=== PATIENT | male | born 1970 | race Caucasian/White ===

== ENCOUNTER 2019-02-03 15:43 | Observation (INO) | payer OTHER, SELFPAY ==
[2018-10-31 11:29] VITALS: BMI 27.2
[2019-02-03 15:44] VITALS: BP 139/122; PULSE 110; RESP 16; TEMP 36.6; O2SAT 96; BMI 25.3
--- NOTE | 2019-02-03 16:19 | ED.DCSUM_ITS ---
- ER Visit Summary Date of Service: 02/03/19 Chief Complaint: Nausea and vomiting after excessive alcohol consumption History of Present Illness: The patient is a 48 M history of alcoholism and gastritis. Patient states that he drank a liter of vodka and last 24 hours he has had nausea vomiting last couple days. Denies any hematemesis. No melena. No abdominal pain. He states he is never had pancreatitis. He also states that he went through alcohol detox earlier this year in [facility]. Physical Examination: Middle-aged male no acute distress. Vital signs are stable he is afebrile he does not look septic or toxic. HEENT exam unremarkable. Neck nontender no lymphadenopathy. Lungs clear to auscultation bilaterally. Heart regular rhythm no murmur rate about 100. Abdomen is soft and nontender. Normal bowel sounds no peritoneal signs. Nondistended. No signs of obstruction. Both right upper right lower quadrant unremarkable. He is moving all 4 extremities. They are neurovascular intact. Normal motor strength and sensation. No deformity. Nontender. Back nontender. Neurologically is awake and alert with no focal motor deficits. He is slightly subdued to the alcohol. Test Results: See normal white count of 5 hemoglobin 15. Chemistries unremarkable gap is 17 consistent with alcoholic ketosis. Glucose 73. BUN 13 creatinine 1. Liver enzymes slightly elevated consistent with his alcohol abuse. Lipase normal. Alcohol elevated at 381. Emergency Department Course and Treatment: Treated with IV fluids and IV Zofran. I have encouraged the patient to strongly consider inpatient detox. His is present in the room and they are going to discuss that. Treatment Plan: Repeat exam the patient is resting comfortably. His strongly wants him detox. She will find him detox facility but would like him to stay here overnight. Patient is agreeable to that plan. I will speak to the hospitalist about admission. Disposition: Admission Impression: Acute nausea and vomiting secondary to alcohol abuse History of alcoholism Alcoholism requiring detox Acute alcohol intoxication This note was generated with [employer] dictation software. It may contain incorrect words, spelling, and punctuation that were not noted in review of the chart prior to signing ED Disposition - Plan for ED Patient: Referrals: Care Physician,No Primary [Primary Care Provider] -
[2019-02-03] MEDS: Ondansetron 4 MG/2 ML Vial IV ×2 (17:16→23:25)
[2019-02-03] MEDS: 0.9% Normal Saline 1,000 ML 1000 ML IV (17:16)
[2019-02-03 17:19] LABS: Absolute Lymphocyte Count 1.58 X10^3/uL (0.83-4.51); Absolute Neutrophil Count 2.9 X10^3/uL (2.0-7.7); Basophil# 0.06 X10^3/uL; Basophil% 1.2 % (0-1); Eosinophil# 0.12 X10^3/uL; Eosinophils% 2.4 % (0-5); Hemoglobin 15.8 g/dL (13.0-16.5); Lymphocyte # 1.58 X10^3/ul (4.0); Lymphocyte % 31.9 % (19-41); Mean Corp Hgb Conc 34.3 g/dL (32-36); Mean Corpuscular Hgb 32.2 pg (27.0-32.0); Mean Corpuscular Volume 93.7 fL (80-94); Mean Platelet Vol. 11.5 fl (6.2-12.0); Monocyte# 0.25 X10^3/uL; NRBC Flagged by Analyzer 0 % (0-5); Neutrophil # 2.94 X10^3/uL (2.7-7.7); Neutrophil % 59.3 % (47-70); Platelet Count 218 K/mm3 (150-450); RBC Distribution Width SD 41.5 fl (35.1-43.9); Red Blood Count 4.91 M/mm3 (4.6-6.2)
[2019-02-03 17:44] LABS: AST(SGOT) 66 U/L (15-37); Alanine Aminotransfer ALT/SGPT 89 U/L (16-61); Albumin, Serum 4.8 g/dL (3.2-5.0); Alkaline Phosphatase 71 U/L (45-117); Anion Gap 17 (5-15); BUN 13 mg/dL (7-18); BUN/Creat Ratio 12.1 RATIO (10-20); Bilirubin, Direct 0.36 mg/dL (0.00-0.30); Calcium,Total 9.2 mg/dL (8.5-10.1); Chloride 94 mmol/L (98-107); Creatinine, Serum 1.07 mg/dL (0.70-1.30); EST Glomerular Filtration Rate 79 mL/min (>60); Est Glom Filt Rate - Afr Amer 95 mL/min (>60); Estimated Creatinine Clearance 89.07 ml/min; Globulin 3.6 g/dL (2.2-4.2); Glucose 73 mg/dL (74-106); Lipase 173 U/L (73-393); Protein, Total 8.4 g/dL (6.4-8.2); Sodium Level 136 mmol/L (136-145)
[2019-02-03 18:10] VITALS: BP 130/69; PULSE 85; RESP 16; O2SAT 94
--- NOTE | 2019-02-03 18:57 | HP.PCM_ITS ---
History of Present Illness Date of Admission: 02/03/19 Chief Complaint: alcohol withdrawal The patient is a 48 year old M with past medical history of extensive alcohol abuse. He was admitted through the ED on 02/03/2019 for alcohol withdrawal. Patient states he drinks about half a liter of vodka every day and his last drink was yesterday. He has had nausea and vomiting and wants to quit drinking so he decided to come in for detox. He has undergone detox before which was early at the [facility]. Complained of feeling weak and tired but denied any fever chills, nausea or vomiting, chest pain or diarrhea. Review of systems is otherwise negative. Vitals were essentially stable. Chemistry showed anion gap of 17 and total bilirubin of 1.6 as well as direct bilirubin of 0.63 and AST/ALT of 66/89. CBC was unremarkable. He is never gone through DTs and has never had pancreatitis. He has been admitted to be managed for acute alcohol withdrawal. hopes to get him into a rehab facility shortly. [] Past Medical History Medical History: Medical History (Last Updated 10/31/18 @ 11:31 by Ginna Cotto) Gastritis K29.70 Allergies No Known Allergies Allergy (Unverified 02/03/19 15:44) Home Medications: Ambulatory Orders Medication Instructions Recorded Hydroxyzine Pamoate 50 mg PO DAILY 02/03/19 Melatonin 3 mg PO QHS 02/03/19 Ondansetron [Zofran Odt] 4 mg PO PRN PRN 02/03/19 Pantoprazole Sodium [Protonix] 40 mg PO DAILY 02/03/19 Surgical History: no surgical history Psychiatric History: No pertinent psych hx Lives: Spouse/ Significant Other Smoking Status: Never smoker Tobacco Use: Non-smoker Alcohol: Heavy Drugs: None - *Family History Maternal History Items: No pertinent history Paternal History Items: No pertinent history Review of Systems Constitutional: Reports: Malaise, Weakness, Fatigue. Denies: Chills, Fever, Weight Change Eyes: Denies: Blurred vision HEENT: Denies: Head Aches, Sinus Congestion, Sinus Drainage Cardiovascular: Denies: Chest Pain, Palpitations Respiratory: Denies: Cough, Shortness of Breath, Shortness of breath at rest, Shortness of breath upon exertion, Sputum production Gastrointestinal: Denies: Abdominal Pain, Nausea, Vomiting Genitourinary: Denies: Dysuria Musculoskeletal: Denies: Joint Pain, Joint Tenderness Skin: Denies: Rash, Wounds Neurological: Denies: Numbness, Tingling, Focal weakness Psychiatric: Denies: Anxiety, Depression, Homicidal Ideations, Suicidal Ideations Hematologic/ Lymphatic: Denies: Easy Bruising, Easy Bleeding VTE Information - Inpt Only VTE Present on Admission: No VTE Pharm Prophylaxis ordered?: Yes - Physical Exam Vitals/I&O's: Vital Signs Temp Pulse Resp BP Pulse Ox 97.8 F 85 16 130/69 H 94 02/03/19 15:44 02/03/19 18:10 02/03/19 18:10 02/03/19 18:10 02/03/19 18:10 Oxygen Delivery Method Room Air Weight: 176 lb 12.972 oz Body Mass Index (BMI) 25.3 Intake and Output for Last 24 Hours 02/01/19 02/02/19 02/03/19 23:59 23:59 23:59 Intake Total 1000 / 1000 Balance 1000 / 1000 General: Alert, Oriented x3, Cooperative, No apparent distress, Lethargic HEENT: Atraumatic, PERRLA, EOMI, Normocephalic Oral: Dry Mucosa Neck: Supple, No JVD, Negative Carotid Bruits Lungs: Clear to auscultation, Normal air movement, No rhonchi, No wheeze, No rales Cardiovascular: Regular rate, Regular Rhythm, Normal S1, Normal S2, No murmurs Abdomen: Bowel Sounds Present, Soft, Non Tender, Non-Distended, No Hepato- splenomegaly Extremities: No clubbing, No cyanosis, No edema, Capillary Refill Less than 3 Seconds Skin: No rashes, No breakdown Musculoskeletal: No Tenderness to Palpation of Joints or Extremities Lymphatic: No Cervical, Supraclavicular, or Inguinal Adenopathy Neurological: Cranial nerves II-XII grossly intact, Neuro grossly intact, Motor Exam 5/5 strength throughout Psych/Mental Status: Flat Affect, Alert and oriented to time, place, person, mood and affect Laboratory Results 02/03/19 17:10: WBC 5.0, RBC 4.91, Hgb 15.8, Hct 46.0, MCV 93.7, MCH 32.2 H, MCHC 34.3, RDW Std Deviation 41.5, RDW Coeff of Shahbaz 12.0, Plt Count 218, MPV 11.5, Immature Gran % (Auto) 0.200, Neut % (Auto) 59.3, Lymph % (Auto) 31.9, Jennings % (Auto) 5.0, Eos % (Auto) 2.4, Baso % (Auto) 1.2 H, Absolute Neuts (auto) 2.9, Absolute Lymphs (auto) 1.58, Nucleated RBC % 0 02/03/19 17:10: Sodium 136, Potassium 4.0, Chloride 94 L, Carbon Dioxide 25.0, Anion Gap 17 H, BUN 13, Creatinine 1.07, Estim Creat Clear Calc 89.07, Est GFR (MDRD) Af Amer 95, Est GFR (MDRD) Non-Af 79, BUN/Creatinine Ratio 12.1, Glucose 73 L, Calcium 9.2, Total Bilirubin 1.60 H, Direct Bilirubin 0.36 H, AST 66 H, ALT 89 H, Alkaline Phosphatase 71, Total Protein 8.4 H, Albumin 4.8, Globulin 3.6, Lipase 173 02/03/19 17:10: Ethyl Alcohol 381.0 H* Current Medications Sodium Chloride () 1,000 mls @ 999 mls/hr IV .Q1H1M ONE Stop: 02/03/19 19:45 Assessment/Plan All Active Problems (Last Updated 10/31/18 @ 11:31 by Ginna Cotto) Pityrosporum folliculitis (Acute) 48-year-old male admitted for acute alcohol withdrawal. 1. Acute alcohol withdrawal * admit to [facility] * blood alcohol level was 381 * check urine tox * [facility] * monitor CIWA score * consult case management to help with discharge planning * 2. Mild anion gap acidosis: Anion gap is 17 with bicarb of 25. This is likely due to alcoholic ketosis. Should improve with hydration. Will monitor. 3. Elevated liver enzymes: * Total bilirubin is 1.6 with direct bilirubin of 0.36 and AST/ALT of 66 4/89. * This is likely due to chronic alcohol abuse. * No baseline available. * Will monitor. * DVT prophylaxis: low risk. encourage ambulation * Code Visit Inpatient E&M: 40266 Init Hosp L3
[2019-02-03 19:00] VITALS: BP 149/96; PULSE 82; RESP 18; O2SAT 96
[2019-02-03] MEDS: Pantoprazole Sodium 40 MG Tablet PO (19:00)
[2019-02-03] MEDS: 0.9% Normal Saline 1,000 ML 999 ML IV (19:00)
--- NOTE | 2019-02-03 19:20 | ED.RN ---
NOTIFIED OF PT'S REQUEST TO GET SOMETHING TO HELP WITH ANXIETY; PT CURRENTLY HAS MILD TREMORS AND SENSITIVITY TO LIGHT
--- NOTE | 2019-02-03 19:20 | CM.ED ---
SOCIAL WORK INFORMANT: DR. ARIAS REASON FOR REFERRAL: ETOH INTOX- PATIENT TO BE ADMITTED MET WITH PATIENT AND IN ROOM. INTRODUCED ROLE AND REASON FOR REFERRAL. PLAN FOR ADMISSION FOR DETOX. STATES PATIENT WAS IN DETOX BACK IN OCTOBER AND WENT TO [facility]. PATIENT AND REPORT THE EXPERIENCE WAS NOT GOOD AND I WOULD NOT RECOMMEND. DISCUSSED OTHER OPTIONS AND PROVIDED WITH LIST OF OTHER FACILITIES. EDUCATION PROVIDED ON MENTAL HEALTH AND ADDITION. PATIENT'S REPORTS PATIENT HAS MENTIONED IN THE PAST ANXIETY AND DEPRESSION THAT IS NOT TREATED. STATES FAMILY WENT THROUGH A SIGNIFICANT LOSS. MUCH ENCOURAGEMENT AND EMOTIONAL SUPPORT PROVIDED TO PATIENT AND . NO OTHER QUESTIONS AT THIS TIME. PLAN: ADMIT, RESOURCES PROVIDED. Fatuma MENDOZA, RAILROAD PASSENGER AGENT, ABSTRACT CHECKER.
[2019-02-03] MEDS: LORazepam 0.5 MG Tablet PO (19:34)
[2019-02-03 20:00] VITALS: BMI 25.9
[2019-02-03 20:02] VITALS: BP 126/73; PULSE 90; RESP 16; TEMP 36.7; O2SAT 95
[2019-02-03 20:13] VITALS: BMI 25.9
[2019-02-03 20:13] LABS: Magnesium 2.1 mg/dL (1.6-2.6)
[2019-02-03] MEDS: hydrOXYzine PAM 25 MG Capsule 50 MG PO (21:23)
[2019-02-03 23:12] VITALS: BP 134/84; PULSE 98; RESP 18; TEMP 36.6; O2SAT 98
[2019-02-03] MEDS: LORazepam 1 MG Tablet PO (23:17)
[2019-02-03] MEDS: MELATONIN 3 MG TABLET PO (23:17)
[2019-02-03] MEDS: 0.9% Saline Lock 10 ML Syringe IV (23:25)
[2019-02-03 23:35] LABS: Amphetamine Urine VISTA NEGATIVE (<1000 ng/mL); Barbiturate Urine VISTA NEGATIVE (< 200 ng/mL); Benzodiazepine Urine VISTA NEGATIVE (< 200 ng/mL); Cocaine Urine VISTA NEGATIVE (< 300 ng/mL); Ecstacy Urine VISTA NEGATIVE (< 500 ng/mL); Methadone Urine VISTA NEGATIVE (< 300 ng/mL); PCP Urine VISTA NEGATIVE (< 25 ng/mL); THC Urine VISTA NEGATIVE (< 50 ng/mL); Vista UDS pH Range 5
[2019-02-04] VITALS (7 sets, daily range): BP systolic 137–169; BP diastolic 81–98; PULSE 90–111; RESP 14–18; TEMP 36.7–37; O2SAT 97–98
[2019-02-04] MEDS: LORazepam 1 MG Tablet PO ×5 (03:09→22:30)
[2019-02-04 06:51] LABS: Absolute Lymphocyte Count 2.26 X10^3/uL (0.83-4.51); Absolute Neutrophil Count 2.4 X10^3/uL (2.0-7.7); Basophil# 0.05 X10^3/uL; Eosinophil# 0.03 X10^3/uL; Eosinophils% 0.6 % (0-5); Hematocrit 39.8 % (40-54); Hemoglobin 13.3 g/dL (13.0-16.5); Lymphocyte # 2.26 X10^3/ul (4.0); Lymphocyte % 44.2 % (19-41); Mean Corp Hgb Conc 33.4 g/dL (32-36); Mean Corpuscular Volume 95.7 fL (80-94); Mean Platelet Vol. 12.2 fl (6.2-12.0); Monocyte# 0.38 X10^3/uL; Monocyte% 7.4 % (0-10); NRBC Flagged by Analyzer 0 % (0-5); Neutrophil # 2.38 X10^3/uL (2.7-7.7); Neutrophil % 46.6 % (47-70); Platelet Count 170 K/mm3 (150-450); RBC Distribution Width SD 42.4 fl (35.1-43.9); Red Blood Count 4.16 M/mm3 (4.6-6.2); White Blood Count 5.1 K/mm3 (4.4-11.0)
[2019-02-04 07:13] LABS: ALB/GLOB Ratio 1.2 RATIO (0.9-2.4); AST(SGOT) 51 U/L (15-37); Alanine Aminotransfer ALT/SGPT 72 U/L (16-61); Albumin, Serum 3.9 g/dL (3.2-5.0); Alkaline Phosphatase 59 U/L (45-117); Anion Gap 12 (5-15); BUN 12 mg/dL (7-18); Calcium,Total 8.4 mg/dL (8.5-10.1); Chloride 97 mmol/L (98-107); EST Glomerular Filtration Rate 85 mL/min (>60); Est Glom Filt Rate - Afr Amer 103 mL/min (>60); Estimated Creatinine Clearance 95.31 ml/min; Globulin 3.2 g/dL (2.2-4.2); Glucose 58 mg/dL (74-106); Protein, Total 7.1 g/dL (6.4-8.2); Sodium Level 136 mmol/L (136-145)
[2019-02-04] MEDS: Multivitamins,Therapeutic Tablet 1 TABLET PO (07:39)
[2019-02-04] MEDS: Folic Acid 1 MG Tablet PO (07:39)
[2019-02-04] MEDS: Pantoprazole Sodium 40 MG Tablet PO (07:40)
[2019-02-04] MEDS: Thiamine Hydrochloride 100 MG Tablet PO (07:40)
--- NOTE | 2019-02-04 07:44 | PCM.PROGNOTE ---
Subjective: The patient is a 48-year-old male with an extensive history of alcohol dependence who was admitted to [facility] on 02/03/2019 requesting medical stabilization for acute alcohol withdrawal. Vital signs at presentation to the emergency room were temperature 97.8, pulse rate 110, blood pressure 139/2, respiratory rate 16 and he was 96% saturated on room air. CBC was unremarkable. Serum bicarb was 25 and the anion gap was mildly increased at 17. LFTs are abnormal with a total bilirubin of 1.6, AST of 66, ALT of 89 and an alkaline phosphatase of 71. Lipase was within normal limits. Blood alcohol at admission was 381 despite the fact that he said he had not had a drink in 24 hours. He was admitted to the hospital for medical stabilization for acute alcohol withdrawal. Vital signs are stable. He is not tachycardic and blood pressure is within normal limits. He relates to me that he was in detox in October and he stayed 4 days and then went home. He tells me he was sober for approximately 1 month and then started drinking here and there and now he is drinking every day again. He has a grandfather who was an alcoholic. He has no siblings that are alcoholics and his parents are not alcoholic. He denies any illicit drug use. He has never been to and has never been to an inpatient drug/alcohol rehab program. He has never been on Antabuse. He has no plan for what he is going to do at [place]. 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 He tells me that he only drinks at night when he is done with working. Drinking is beginning to cause a problem with his marriage. He denies any suicidal ideation and also denies any history of anxiety/depression. There is no history of mental health disorders in his family. He has decreased appetite today and some nausea. No emesis. He is a little tremulous. No hallucinations. Has never had seizures with alcohol withdrawal. Objective: PHYSICAL EXAM: GENERAL: alert, oriented X 3, Cooperative, NAD, looks sleepy and he is yawning. ORAL: dry mucosa, no mucosal lesions NECK: No JVD, supple, trachea midline LUNGS: CTA, symmetric chest expansion HEART: RRR, Normal S1 and S2, no rub, no gallop ABDOMEN: soft, NT, ND, BS present, no guarding with palpation EXTREMITIES: no edema, no cyanosis, no calf tenderness SKIN: No rashes, no breakdown NEUROLOGIC: no focal neurologic deficits, his hands are tremulous PSYCH: appropriate, flat affect, seems unsure of just what he is going to do about rehab. - Physical Exam Vitals/I&O's: Vital Signs Temp Pulse Resp BP Pulse Ox 98.6 F 93 16 138/82 H 98 02/04/19 03:06 02/04/19 03:06 02/04/19 03:06 02/04/19 03:06 02/04/19 03:06 Oxygen Delivery Method Room Air Weight: 180 lb 5.41 oz Body Mass Index (BMI) 25.9 Intake and Output for Last 24 Hours 02/02/19 02/03/19 02/04/19 23:59 23:59 23:59 Intake Total 1999 / 0 500 / 500 Balance 1999 / 2299 500 / 500 Laboratory Results 02/03/19 17:10: WBC 5.0, RBC 4.91, Hgb 15.8, Hct 46.0, MCV 93.7, MCH 32.2 H, MCHC 34.3, RDW Std Deviation 41.5, RDW Coeff of Shahbaz 12.0, Plt Count 218, MPV 11.5, Immature Gran % (Auto) 0.200, Neut % (Auto) 59.3, Lymph % (Auto) 31.9, Bowman % (Auto) 5.0, Eos % (Auto) 2.4, Baso % (Auto) 1.2 H, Absolute Neuts (auto) 2.9, Absolute Lymphs (auto) 1.58, Nucleated RBC % 0 02/03/19 17:10: Sodium 136, Potassium 4.0, Chloride 94 L, Carbon Dioxide 25.0, Anion Gap 17 H, BUN 13, Creatinine 1.07, Estim Creat Clear Calc 89.07, Est GFR (MDRD) Af Amer 95, Est GFR (MDRD) Non-Af 79, BUN/Creatinine Ratio 12.1, Glucose 73 L, Calcium 9.2, Total Bilirubin 1.60 H, Direct Bilirubin 0.36 H, AST 66 H, ALT 89 H, Alkaline Phosphatase 71, Total Protein 8.4 H, Albumin 4.8, Globulin 3.6, Lipase 173 02/03/19 17:10: Ethyl Alcohol 381.0 H* 02/03/19 17:10: Magnesium 2.1 02/03/19 23:09: Urine Opiates Screen NEGATIVE, Urine Methadone Screen NEGATIVE, Ur Barbiturates Screen NEGATIVE, Ur Phencyclidine Scrn NEGATIVE, Ur Amphetamines Screen NEGATIVE, U Methamphetamin-MDMA NEGATIVE, U Benzodiazepines Scrn NEGATIVE, Urine Cocaine Screen NEGATIVE, U Cannabinoids Screen NEGATIVE, Ur Drug Screen Comment 02/04/19 05:49: WBC 5.1, RBC 4.16 L, Hgb 13.3, Hct 39.8 L, MCV 95.7 H, MCH 32.0, MCHC 33.4, RDW Std Deviation 42.4, RDW Coeff of Shahbaz 12.0, Plt Count 170, MPV 12.2 H, Immature Gran % (Auto) 0.200, Neut % (Auto) 46.6 L, Lymph % (Auto) 44.2 H, Bowman % (Auto) 7.4, Eos % (Auto) 0.6, Baso % (Auto) 1.0, Absolute Neuts (auto) 2.4, Absolute Lymphs (auto) 2.26, Nucleated RBC % 0 02/04/19 05:49: Sodium 136, Potassium 4.0, Chloride 97 L, Carbon Dioxide 27.0, Anion Gap 12, BUN 12, Creatinine 1.00, Estim Creat Clear Calc 95.31, Est GFR (MDRD) Af Amer 103, Est GFR (MDRD) Non-Af 85, BUN/Creatinine Ratio 12.0, Glucose 58 L, Calcium 8.4 L, Total Bilirubin 1.90 H, AST 51 H, ALT 72 H, Alkaline Phosphatase 59, Total Protein 7.1, Albumin 3.9, Globulin 3.2, Albumin/Globulin Ratio 1.2 Current Medications Dextrose (D50w Syringe) 0 gm IV X1 PRN; Protocol PRN Reason: Hypoglycemia Dicyclomine HCl (Bentyl) 20 mg PO Q6H PRN PRN PRN Reason: abdominal discomfort Folic Acid (Folic Acid) 1 mg PO DAILYCM [facility] Stop: 02/06/19 08:01 Last Admin: 02/04/19 07:39 Dose: 1 mg Documented by: Glucagon () 1 mg IM .X1 PRN PRN Reason: Hypoglycemia Hydroxyzine Pamoate (Vistaril Pamoate Capsule) 50 mg PO Q6H PRN PRN PRN Reason: Mild Anxiety (score 1/3) Last Admin: 02/03/19 21:23 Dose: 50 mg Documented by: Lorazepam (Ativan) 1 mg PO Q4H [facility]; Taper Stop: 02/06/19 23:29 Last Admin: 02/04/19 07:39 Dose: 1 mg Documented by: Lorazepam (Ativan) 2 mg PO Q2H PRN PRN; Protocol PRN Reason: CIWA score > 8 but <15 Lorazepam (Ativan) 2 mg PO UD PRN; Protocol PRN Reason: CIWA score >/=15. Lorazepam (Ativan) 2 mg IV Q2H PRN PRN; Protocol PRN Reason: CIWA score > 8 but <15 Lorazepam (Ativan) 2 mg IV UD PRN; Protocol PRN Reason: CIWA score >/=15. Melatonin (Melatonin) 3 mg PO QHS [facility] Last Admin: 02/03/19 23:17 Dose: 3 mg Documented by: Methocarbamol (Methocarbamol) 750 mg PO Q6H PRN PRN PRN Reason: Muscle Aches Multivitamins (Multivitamin) [facility] Last Admin: 02/04/19 07:39 Dose: 1 tablet Documented by: Ondansetron HCl (Zofran Odt) 4 mg PO PRN PRN PRN Reason: NAUSEA Ondansetron HCl (Zofran) 4 mg IV Q8H PRN PRN PRN Reason: NAUSEA/VOMITING Last Admin: 02/03/19 23:25 Dose: 4 mg Documented by: Pantoprazole Sodium (Protonix) 40 mg PO DAILY [facility] Last Admin: 02/04/19 07:40 Dose: 40 mg Documented by: Sodium Chloride () 10 - 40 ml IV UD PRN PRN Reason: SALINE FLUSH Last Admin: 02/03/19 23:25 Dose: 10 ml Documented by: Thiamine HCl (Vitamin B1) 100 mg PO [facility] Stop: 02/06/19 08:01 Last Admin: 02/04/19 07:40 Dose: 100 mg Documented by: Medical Necessity - Tobacco Use Smoking Status: Never smoker Tobacco Use: Non-smoker Assessment/Plan All Active Problems (Last Updated 10/31/18 @ 11:31 by Ginna Cotto) Pityrosporum folliculitis (Acute) Impressions 1. alcohol intoxication 2. medical stabilization for acute withdrawal of alcohol. Has no plan for what he is going to do when the 72 hours is up. Has not thought about AA, 180, inpt vs OP alcohol counselling. Has not been successful in the past when going through 3-4 days of detox and then home with no plan. SW will see him tomorrow and provide resources for him to call and make arrangements for OP or inpt follow up. 3. mildly increased AG more likely than not due to alcoholic ketosis. This has resolved so will discontinue IV fluids. 4. Abnormal LFTs -not consistent with alcoholic hepatitis. May be developing cirrhosis. Bilirubin is elevated so this is not just transaminitis. Will order an ultrasound of the liver and a PT. 5. insomnia - RX Trazodone 50-100 mg at HS. May need this at DC since he drinks sometimes to fall asleep. continue the protocol for acute alcohol withdrawal. Code Visit Inpatient E&M: 88001 Subs Hosp L2
--- NOTE | 2019-02-04 08:24 | NURSING ---
pt Jayshree called to check on pt, verified that information was ok to be shared, stated that she was going to do some research today for a facility for further rehab for pt. Jayshree also clarified that her contact phone number is [phone].
[2019-02-04] MEDS: LORazepam 2 MG/ML Syringe IV (21:32)
[2019-02-04] MEDS: 0.9% Saline Lock 10 ML Syringe IV (21:32)
[2019-02-04] MEDS: MELATONIN 3 MG TABLET PO (22:30)
[2019-02-04] MEDS: traZODone 50 MG Tablet PO (22:30)
[2019-02-05 03:56] VITALS: BP 132/78; PULSE 89; RESP 18; TEMP 36.6; O2SAT 98
[2019-02-05] MEDS: LORazepam 1 MG Tablet PO ×4 (04:00→23:20)
--- NOTE | 2019-02-05 08:23 | PCM.PROGNOTE ---
Patient Problems: Active and Suspected Problems (Last Updated 10/31/18 @ 11:31 by Ginna Cotto) Acute alcohol intoxication (Acute) Subjective: Chief complaint: Follow-up after admission for acute alcohol intoxication/withdrawal. Patient seen and examined. No acute events overnight. He mentioned that he was able to sleep better last night. Denied abdominal pain, cramps, nausea vomiting. However, he is feeling better. His vitals are stable. - Physical Exam Vitals/I&O's: Vital Signs Temp Pulse Resp BP Pulse Ox 97.8 F 89 18 132/78 H 98 02/05/19 03:56 02/05/19 03:56 02/05/19 03:56 02/05/19 03:56 02/05/19 03:56 Oxygen Delivery Method Room Air Weight: 180 lb 5.41 oz Body Mass Index (BMI) 25.9 Intake and Output for Last 24 Hours 02/03/19 02/04/19 02/05/19 23:59 23:59 23:59 Intake Total 1999 / 2300 1300 / 1500 400 / 400 Balance 1999 / 2300 1300 / 1500 400 / 400 General: Alert, Oriented x3, Cooperative, No apparent distress HEENT: Atraumatic, PERRLA, EOMI, Normocephalic Oral: Moist Mucosa, No Gingival or Mucosal Lesions/ Ulcerations Neck: Supple, No JVD, Negative Carotid Bruits, Trachea Midline, Thyroid Normal Size and Texture Lungs: Clear to auscultation, Normal air movement, No rhonchi, No wheeze, No rales Cardiovascular: Regular rate, Regular Rhythm, Normal S1, Normal S2 Abdomen: Bowel Sounds Present, Soft, Non Tender, Non-Distended, No Hepato-splenomegaly Extremities: No clubbing, No cyanosis, No edema Skin: No rashes, No breakdown Lymphatic: No Cervical, Supraclavicular, or Inguinal Adenopathy Neurological: Cranial nerves II-XII grossly intact, Motor Exam 5/5 strength throughout Psych/Mental Status: Normal Affect, Appropriate Current Medications Dextrose (D50w Syringe) 0 gm IV X1 PRN; Protocol PRN Reason: Hypoglycemia Dicyclomine HCl (Bentyl) 20 mg PO Q6H PRN PRN PRN Reason: abdominal discomfort Folic Acid (Folic Acid) 1 mg PO DAILYCM [facility] Stop: 02/06/19 08:01 Last Admin: 02/04/19 07:39 Dose: 1 mg Documented by: Glucagon () 1 mg IM .X1 PRN PRN Reason: Hypoglycemia Hydroxyzine Pamoate (Vistaril Pamoate Capsule) 50 mg PO Q6H PRN PRN PRN Reason: Mild Anxiety (score 1/3) Last Admin: 02/03/19 21:23 Dose: 50 mg Documented by: Lorazepam (Ativan) 1 mg PO Q6H [facility]; Taper Stop: 02/06/19 23:29 Last Admin: 02/05/19 04:00 Dose: 1 mg Documented by: Lorazepam (Ativan) 2 mg PO Q2H PRN PRN; Protocol PRN Reason: CIWA score > 8 but <15 Lorazepam (Ativan) 2 mg PO UD PRN; Protocol PRN Reason: CIWA score >/=15. Lorazepam (Ativan) 2 mg IV Q2H PRN PRN; Protocol PRN Reason: CIWA score > 8 but <15 Last Admin: 02/04/19 21:32 Dose: 2 mg Documented by: Lorazepam (Ativan) 2 mg IV UD PRN; Protocol PRN Reason: CIWA score >/=15. Melatonin (Melatonin) 3 mg PO QHS [facility] Last Admin: 02/04/19 22:30 Dose: 3 mg Documented by: Methocarbamol (Methocarbamol) 750 mg PO Q6H PRN PRN PRN Reason: Muscle Aches Multivitamins ([facility]ivitamin) [facility] Last Admin: 02/04/19 07:39 Dose: 1 tablet Documented by: Ondansetron HCl (Zofran Odt) 4 mg PO PRN PRN PRN Reason: NAUSEA Ondansetron HCl (Zofran) 4 mg IV Q8H PRN PRN PRN Reason: NAUSEA/VOMITING Last Admin: 02/03/19 23:25 Dose: 4 mg Documented by: Pantoprazole Sodium (Protonix) 40 mg PO DAILY [facility] Last Admin: 02/04/19 07:40 Dose: 40 mg Documented by: Sodium Chloride () 10 - 40 ml IV UD PRN PRN Reason: SALINE FLUSH Last Admin: 02/04/19 21:32 Dose: 10 ml Documented by: Thiamine HCl (Vitamin B1) [facility] Stop: 02/06/19 08:01 Last Admin: 02/04/19 07:40 Dose: 100 mg Documented by: Trazodone HCl (Desyrel) 50 mg PO QHS [facility] Last Admin: 02/04/19 22:30 Dose: 50 mg Documented by: Medical Necessity - Tobacco Use Smoking Status: Never smoker Tobacco Use: Non-smoker Assessment/Plan All Active Problems (Last Updated 10/31/18 @ 11:31 by Ginna Cotto) Acute alcohol intoxication (Acute) This is a 48 years old male patient presented to the emergency room because of nausea and vomiting after excessive alcohol consumption and he requested admission for medical stabilization for acute alcohol intoxication/withdrawal. #1 acute alcohol intoxication/withdrawal: He is on tapering course of Ativan as well as requested, thiamine, multivitamins, PRN Bentyl, Vistaril, methocarbamol and Zofran. His vitals are stable. His routine blood work was unremarkable. Admission blood alcohol level was 381. Urine drug screen is negative. Patient symptoms are improving. Plan to continue same treatment. #2 elevated LFT: Likely due to alcoholic hepatitis. Both bilirubin and liver transaminases are slightly elevated, transaminases are trending down. Lipase is negative. Patient denied any right upper quadrant abdominal pain. No indication for further work-up. #3 insomnia: Continue trazodone. 4 DVT prophylaxis: Low risk patient, ambulate. This note was generated with [employer] dictation software. It may contain incorrect words, spelling, and punctuation that were not noted in checking the note before signing. Code Visit Inpatient E&M: 68037 Subs Hosp L2
[2019-02-05] MEDS: Folic Acid 1 MG Tablet PO (08:57)
[2019-02-05] MEDS: Thiamine Hydrochloride 100 MG Tablet PO (08:57)
[2019-02-05] MEDS: Multivitamins,Therapeutic Tablet 1 TABLET PO (08:58)
[2019-02-05 09:05] VITALS: BP 147/88; PULSE 86; RESP 18; TEMP 36.6; O2SAT 97
[2019-02-05] MEDS: Pantoprazole Sodium 40 MG Tablet PO (09:15)
--- NOTE | 2019-02-05 11:46 | CASEMGMT ---
Social Work Note COREY received note from RN stating pt's will be at [facility] around 10:00am and would like to meet with this worker. COREY met with pt and pt's Jayshree present at [facility]. Pt gave this worker permission to speak to him in front of his . Jayshree confirms that she received list of agencies and have reviewed them. Jayshree states that she is looking into a [facility] in [place] as pt and Jayshree live in [place], [place]. SW asked pt if he is agreeable to inpatient or outpatient treatment at discharge. Pt states that he is leaning towards outpatient treatment. Pt's Jayshree spent much time with pt talking about him going to inpatient treatment at discharge instead of outpatient treatment. SW informed pt and Jayshree that pt has the right to decide if he would like inpatient or outpatient treatment at discharge and it is pt's choice. Jayshree states well doesn't studies show that going to inpatient after detox helps the pt more than doing outpatient treatment. SW explained that it is different for everybody and the pt will need to decide what he feels like he needs at discharge to be successful. SW informed Jayshree that this worker can't make decision for pt and can't make pt go to inpatient at discharge. SW asked pt about his drinking. Pt states that he started off drinking at a young age and it has progressed throughout the year. Pt states that he has been to detox before at [facility] and it was terrible. Pt states that he was there for four days and was just happy to leave. Pt denied being set up with any outpatient treatment from his discharge at [facility]. SW again reiterated that it is pt's choice in deciding which treatment he would like at discharge. Pt's asked if pt is agreeable to inpatient and they need medical notes how can she get those. COREY informed Jayshree that pt's medical records are able to be collected at Medical Records at [facility] but also informed Jayshree that if she calls a facility and they provide their fax number, this worker can fax over clinicals to the facility as well. Jayshree states understanding. Jayshree and pt deny additional needs or concerns at this time. Plan: Pt and pt's Jayshree are reviewing treatment options for pt. Pt's would like pt to go to inpatient treatment at [facility] but at this time pt is not agreeable to inpatient treatment. Fara Murphy TIRE LAYER, PUBLIC MESSAGE SERVICE SUPERVISOR
--- NOTE | 2019-02-05 15:30 | CASEMGMT ---
Social Work Note RN updated this worker that pt's is upset and would like to speak to this worker. COREY met with pt's Jayshree. Jayshree states that she has been in contact with [facility] in [place], [place] and they have beds available at this time. Jayshree asked how she can get pt to go to inpatient/residential treatment at discharge. COREY informed Jayshree that pt has to be agreeable but it may be beneficial to take pt to [facility] at discharge and allow him to see the facility and meet the staff and complete an initial assessment. COREY informed Jayshree that this worker can't make pt go to inpatient at discharge though and pt has to be agreeable. Jayshree states that she is giving pt the ultimatum that either pt needs to go to inpatient treatment or pt is going to lose his family. Jayshree states that they have children at home who are watching pt drink and she doesn't want her children around that. Jayshree states both her and pt suffered a great loss around 3 years ago and that is when pt started to increase his drinking. COREY offered support to pt. COREY informed Jayshree that physician is hoping for discharge tomorrow. Jayshree states understanding, denied additional needs or concerns at this time. Fara Murphy FERN PICKER, SAXOPHONE PLAYER
[2019-02-05 16:00] VITALS: BP 139/85; PULSE 96; RESP 18; TEMP 36.7; O2SAT 96
[2019-02-05] MEDS: traZODone 50 MG Tablet PO (23:20)
[2019-02-05] MEDS: MELATONIN 3 MG TABLET PO (23:20)
[2019-02-05 23:23] VITALS: BP 145/89; PULSE 92; RESP 18; TEMP 36.3; O2SAT 97
[2019-02-06 03:42] VITALS: BP 138/86; PULSE 74; RESP 16; TEMP 36.4; O2SAT 97
[2019-02-06 07:47] VITALS: BP 140/99; PULSE 95; RESP 18; TEMP 36.6; O2SAT 100
[2019-02-06] MEDS: Thiamine Hydrochloride 100 MG Tablet PO (07:51)
[2019-02-06] MEDS: Pantoprazole Sodium 40 MG Tablet PO (07:51)
[2019-02-06] MEDS: Folic Acid 1 MG Tablet PO (07:52)
[2019-02-06] MEDS: Multivitamins,Therapeutic Tablet 1 TABLET PO (07:52)
[2019-02-06] MEDS: LORazepam 1 MG Tablet PO (07:52)
--- NOTE | 2019-02-06 08:20 | DCINST_ITS ---
- Discharge Diagnoses Current Active Problems: Current Active and Chronic Problems (Last Updated 10/31/18 @ 11:31 by Ginna Cotto) Acute alcohol intoxication (Acute) Alcohol abuse (Chronic) You will use the following diet at home:: Regular Your food should be the consistency of: Regular Discharge Activity: Return to Normal Activity Weight Bearing Status: Full weight bearing Call your doctor if you observe: Fever of 101 or Higher, Shortness of breath, Dizziness, Fainting spells, Chest pain, Increased palpitations (irregular heartbeat), Uncontrolled pain Instructions: Life After Combat: Coping with Alcohol Abuse, Recovering from Addiction: Continuing with Counseling Allergies/Adverse Reactions: Allergies No Known Allergies Allergy (Unverified 02/03/19 15:44) Medications to take at Discharge Pantoprazole Sodium [Protonix] 40 mg PO DAILY 02/03/19 Chlordiazepoxide [Librium] 25 mg PO TID PRN PRN #14 cap 02/06/19 Ondansetron HCl [Zofran] 4 mg PO Q8H PRN PRN #14 tab 02/06/19 traZODone [Desyrel] 50 mg PO QHS #30 tab 02/06/19 The following prescriptions were given: traZODone [Desyrel] 50 mg PO QHS #30 tab Transmission Status: [id number] Chlordiazepoxide [Librium] 25 mg PO TID PRN PRN #14 cap PRN Reason: Alcohol Withdrawal Prescription Printed Ondansetron HCl [Zofran] 4 mg PO Q8H PRN PRN #14 tab PRN Reason: Nausea/Vomiting Transmission Status: [id number] Primary Care Physician: Care Physician,No Primary [Primary Care Provider] - Please follow up with your Primary Care Physician in: 2 weeks. Test Results: Test results from this visit will be discussed in further detail at your follow- up appointment, if applicable.
--- NOTE | 2019-02-06 10:41 | DS.PCM_ITS ---
Discharge Date and Diagnosis - Problem List Patient Problems: Active and Suspected Problems (Last Updated 10/31/18 @ 11:31 by Ginna Cotto) Acute alcohol intoxication (Acute) Date of Admission: 02/03/19 Date of Discharge: 02/06/19 - Primary Discharge Diagnosis Active and Suspected Problems (Last Updated 10/31/18 @ 11:31 by Ginna Cotto) #1 acute alcohol intoxication/withdrawal (Acute). #2 elevated LFT, attributed to alcoholic hepatitis. #3 insomnia. - Secondary Discharge Diagnosis Chronic Problems (Last Updated 10/31/18 @ 11:31 by Ginna Cotto) Alcohol abuse (Chronic) Hospital Course and Treatment Operations: None Procedures: None Summary of Care Provided: Patient seen and examined on the day of discharge and appeared to be stable to be discharged home. Symptoms continue to improve and he was able to sleep overnight. His vital signs are stable. The patient is a 49 year old M presented to the emergency room because of nausea and vomiting after excessive alcohol consumption and he requested admission for medical stabilization for acute alcohol intoxication/withdrawal. Upon admission, his blood alcohol level was 381. His urine drug screen was negative. His other routine blood work was unremarkable. LFT revealed elevated bilirubin and liver transaminases which is attributed to alcoholic hepatitis. Patient was treated with tapering course of Ativan, thiamine and folic acid supplement as well as multivitamins, as needed Benadryl, Vistaril, methocarbamol and Zofran. With treatment, patient symptoms improved. He was started on trazodone for insomnia and he was able to sleep good sleep. Completed tapering course of Ativan. Patient discharged home in a stable medical condition, discharged on trazodone nightly for insomnia, discharged on Librium as needed for withdrawal symptoms, discharged on Zofran PRN for nausea and vomiting, continued on Protonix, recommended follow-up with PCP in 2 weeks and he will be given resources by the older adult social work specialist and manager case management to avoid relapse. Patient Problems: Active and Suspected Problems (Last Updated 10/31/18 @ 11:31 by Ginna Cotto) Acute alcohol intoxication (Acute) - Physical Exam Vitals/I&O's: Vital Signs Temp Pulse Resp BP Pulse Ox 97.9 F 95 18 140/99 H 100 02/06/19 07:47 02/06/19 07:47 02/06/19 07:47 02/06/19 07:47 02/06/19 07:47 Oxygen Delivery Method Room Air Weight: 180 lb 5.41 oz Body Mass Index (BMI) 25.9 Intake and Output for Last 24 Hours 02/04/19 02/05/19 02/06/19 23:59 23:59 23:59 Intake Total 1300 / 1500 1250 / 1650 700 / 700 Balance 1300 / 1500 1250 / 1650 700 / 700 General: Alert, Oriented x3, Cooperative, No apparent distress HEENT: Atraumatic, PERRLA, EOMI, Normocephalic Oral: Moist Mucosa, No Gingival or Mucosal Lesions/ Ulcerations Neck: Supple, No JVD, Negative Carotid Bruits, Trachea Midline, Thyroid Normal Size and Texture Lungs: Clear to auscultation, Normal air movement, No rhonchi, No wheeze, No rales Cardiovascular: Regular rate, Regular Rhythm, Normal S1, Normal S2, PMI Normal Abdomen: Bowel Sounds Present, Soft, Non Tender, Non-Distended, No Hepato- splenomegaly Extremities: No clubbing, No cyanosis, No edema Skin: No rashes, No breakdown Lymphatic: No Cervical, Supraclavicular, or Inguinal Adenopathy Neurological: Cranial nerves II-XII grossly intact, Neuro grossly intact Psych/Mental Status: Normal Affect, Appropriate, Alert and oriented to time, place, person, mood and affect Current Medications Dextrose (D50w Syringe) 0 gm IV X1 PRN; Protocol PRN Reason: Hypoglycemia Dicyclomine HCl (Bentyl) 20 mg PO Q6H PRN PRN PRN Reason: abdominal discomfort Glucagon () 1 mg IM .X1 PRN PRN Reason: Hypoglycemia Hydroxyzine Pamoate (Vistaril Pamoate Capsule) 50 mg PO Q6H PRN PRN PRN Reason: Mild Anxiety (score 1/3) Last Admin: 02/03/19 21:23 Dose: 50 mg Documented by: Lorazepam (Ativan) 1 mg PO Q8H JERROD; Taper Stop: 02/06/19 23:29 Last Admin: 02/06/19 07:52 Dose: 1 mg Documented by: Lorazepam (Ativan) 2 mg PO Q2H PRN PRN; Protocol PRN Reason: CIWA score > 8 but <15 Lorazepam (Ativan) 2 mg PO UD PRN; Protocol PRN Reason: CIWA score >/=15. Lorazepam (Ativan) 2 mg IV Q2H PRN PRN; Protocol PRN Reason: CIWA score > 8 but <15 Last Admin: 02/04/19 21:32 Dose: 2 mg Documented by: Lorazepam (Ativan) 2 mg IV UD PRN; Protocol PRN Reason: CIWA score >/=15. Melatonin (Melatonin) 3 mg PO QHS [facility] Last Admin: 02/05/19 23:20 Dose: 3 mg Documented by: Methocarbamol (Methocarbamol) 750 mg PO Q6H PRN PRN PRN Reason: Muscle Aches [facility] Last Admin: 02/06/19 07:52 Dose: 1 tablet Documented by: Ondansetron HCl (Zofran Odt) 4 mg PO PRN PRN PRN Reason: NAUSEA Ondansetron HCl (Zofran) 4 mg IV Q8H PRN PRN PRN Reason: NAUSEA/VOMITING Last Admin: 02/03/19 23:25 Dose: 4 mg Documented by: Pantoprazole Sodium (Protonix) 40 mg PO DAILY [facility] Last Admin: 02/06/19 07:51 Dose: 40 mg Documented by: Sodium Chloride () 10 - 40 ml IV UD PRN PRN Reason: SALINE FLUSH Last Admin: 02/04/19 21:32 Dose: 10 ml Documented by: Trazodone HCl (Desyrel) 50 mg PO QHS [facility] Last Admin: 02/05/19 23:20 Dose: 50 mg Documented by: Discharge Activity: Return to Normal Activity Weight Bearing Status: Full weight bearing Call your doctor if you observe: Fever of 101 or Higher, Shortness of breath, Dizziness, Fainting spells, Chest pain, Increased palpitations (irregular heart beat), Uncontrolled pain Home Medications: Medications to take at Discharge Pantoprazole Sodium [Protonix] 40 mg PO DAILY 02/03/19 Chlordiazepoxide [Librium] 25 mg PO TID PRN PRN #14 cap 02/06/19 Ondansetron HCl [Zofran] 4 mg PO Q8H PRN PRN #14 tab 02/06/19 traZODone [Desyrel] 50 mg PO QHS #30 tab 02/06/19 Following Prescrptions Were Given to Patient: traZODone [Desyrel] 50 mg PO QHS #30 tab Transmission Status: [id number] Chlordiazepoxide [Librium] 25 mg PO TID PRN PRN #14 cap PRN Reason: Alcohol Withdrawal Prescription Printed Ondansetron HCl [Zofran] 4 mg PO Q8H PRN PRN #14 tab PRN Reason: Nausea/Vomiting Transmission Status: [id number] Primary Care Physician: Care Physician,No Primary [Primary Care Provider] - Please follow up with your Primary Care Physician in: 2 weeks. Patient Instructions: Life After Combat: Coping with Alcohol Abuse, Recovering from Addiction: Continuing with Counseling Disposition: Home Minutes spent on discharge:: 25 Patient Condition:: Stable Medical Necessity - Tobacco Use Smoking Status: Never smoker Tobacco Use: Non-smoker Meaningful Use Info Meaningful Use Diagnoses (Choose all that apply): None applicable Code Visit Inpatient E&M: 22695 Disch Hosp
--- NOTE | 2019-02-06 12:00 | CASEMGMT ---
Social Work Note RN updated this worker that pt's is at [facility] and requesting to speak to this worker before pt discharges. COREY met with pt and pt's Jayshree. Jayshree asked this worker what the process is for pt when he decides on a agency for treatment. COREY informed Jayshree that once pt decides on a facility, pt will need to call agency and arrange either an appointment to be assessed or some agencies provide walk in assessments and pt may be able to do that. Jayshree asked if the agency requests medical records what that process is. COREY informed Jayshree that the agency will likely have a release of information document that pt will need to complete and then fax to [facility] and then [facility] can fax clinicals. COREY informed Jayshree that if she wishes she is able to go to Medical Records and request copy of pt's records. Jayshree states she will do so. COREY provided [facility] with release of information form for pt to complete and instructed [facility] to take document to Medical Records. Jayshree and pt state understanding, denied additional needs or concerns at this time. Fara Murphy MANAGER OF CREATIVE SERVICES, TRAILER STEERER
[2019-02-06 12:29] VITALS: BP 137/86; PULSE 90; RESP 18; TEMP 36.6; O2SAT 100
== END 2019-02-06 12:49 | disposition home or self-care (01) | DRG 897 ==
LOC: ED 16:11 → MS3 02-04 06:42
PROVIDERS: Admitting Provider Student in an Organized Health Care Education/Training Program; Emergency Provider Emergency Medicine; Visit Provider Hospitalist
DX: F10.229 Alcohol dependence with intoxication, unspecified (principal); E87.2 Acidosis; F10.239 Alcohol dependence with withdrawal, unspecified; Y90.8 Blood alcohol level of 240 mg/100 ml or more; K70.10 Alcoholic hepatitis without ascites; G47.00 Insomnia, unspecified; R11.2 Nausea with vomiting, unspecified; Z79.899 Other long term (current) drug therapy
CPT/HCPCS: 36415; 80048; 80053; 80076; 80307; 80320; 83690; 83735; 85025; 96361; 96374; 96375; 96376; 99218; 99282; J7030; A4216; G0378; G0480; J2405

== ENCOUNTER 2019-06-20 18:43 | Inpatient (IN) | payer OTHER, SELFPAY ==
[2019-06-20 18:44] VITALS: BP 133/75; PULSE 106; RESP 20; TEMP 36.9; O2SAT 97; BMI 24.3
--- NOTE | 2019-06-20 20:02 | ED.DCSUM_ITS ---
History of Present Illness Chief Complaint: ETOH Intox Detail of Chief Complaint: Requesting detox Informant: Patient Narrative: Patient is presenting requesting detox from alcohol. He had a recent back injury and states secondary to this he started drinking more again. Patient went through detox here last January. He states he is been sober since that time until about 8 or 10 days ago. He has been drinking vodka. He now has nausea and vomiting along with epigastric pain. He is requesting detox again. - Past Medical History (1) Back pain Status: Chronic (2) Alcohol abuse Status: Chronic Past Medical History - Allergies and Home Meds Allergies/Adverse Reactions: Allergies No Known Allergies Allergy (Unverified 06/20/19 18:48) Primary Care Physician: Care Physician,No Primary [NON-STAFF] - Prior records reviewed: Yes Surgical History: no surgical history Lives: Spouse/ Significant Other Smoking Status: Former smoker - Family History Maternal Family History: Reports: No pertinent history Paternal Family History: Reports: No pertinent history Review of Systems General: Denies: Chills, Fever Eyes: Denies: Visual changes - bilaterally ENT: Denies: Bilateral ear pain Cardiovascular: Denies: Chest pain Respiratory: Denies: Dyspnea, Cough Gastrointestinal: Reports: Abdominal pain, Nausea, Vomiting. Denies: Diarrhea Genitourinary: Denies: Dysuria Musculoskeletal: Denies: Extremity Pain Skin: Denies: Rash Neurological: Denies: Headache Allergy: Denies: Uticaria Physical Exam Vital Signs/Narrative: Vital Signs Temp Pulse Resp BP Pulse Ox 06/20/19 18:44 98.5 F 106 H 20 H 133/75 H 97 Inital Vital Signs reviewed: Yes General: Well nourished, Well developed Head: Normocephalic ENT: Moist mucous membranes Neck: Supple Cardiovascular: Regular rate, Regular rhythm Respiratory: No distress, CTA bilaterally Abdomen: Soft, Tender - Mild epigastric tenderness.. Negative for: Guarding, Rebound tenderness Extremities: Nontender Skin: Normal color Neurological: Alert, Oriented x3 Psychological: Normal affect Diagnostic/Tx/Re-eval Laboratory Results 06/20/19 06/20/19 06/20/19 20:00 20:00 20:00 WBC 7.7 RBC 4.59 L Hgb 14.6 Hct 41.7 MCV 90.8 MCH 31.8 MCHC 35.0 RDW Std Deviation 39.4 RDW Coeff of Shahbaz 11.8 Plt Count 104 L MPV 12.2 H Immature Gran % (Auto) 0.400 Neut % (Auto) 80.5 H Lymph % (Auto) 12.2 L [place] % (Auto) 6.4 Eos % (Auto) 0.0 Baso % (Auto) 0.5 Absolute Neuts (auto) 6.2 Absolute Lymphs (auto) 0.93 Nucleated RBC % 0 Sodium 132 L Potassium 3.9 Chloride 88 L Carbon Dioxide 31.0 Anion Gap 13 BUN 17 Creatinine 1.08 Estim Creat Clear Calc 87.31 Est GFR (MDRD) Af Amer 94 Est GFR (MDRD) Non-Af 78 BUN/Creatinine Ratio 15.7 Glucose 76 Calcium 9.6 Total Bilirubin 3.90 H Direct Bilirubin 0.84 H AST 258 H ALT 165 H Alkaline Phosphatase 85 Total Protein 7.8 Albumin 4.7 Globulin 3.1 Urine Opiates Screen Urine Methadone Screen Ur Barbiturates Screen Ur Phencyclidine Scrn Ur Amphetamines Screen U Methamphetamin-MDMA U Benzodiazepines Scrn Urine Cocaine Screen U Cannabinoids Screen Ur Drug Screen Comment Ethyl Alcohol 06/20/19 06/20/19 20:00 20:15 WBC RBC Hgb Hct MCV MCH MCHC RDW Std Deviation RDW Coeff of Shahbaz Plt Count MPV Immature Gran % (Auto) Neut % (Auto) Lymph % (Auto) [place] % (Auto) Eos % (Auto) Baso % (Auto) Absolute Neuts (auto) Absolute Lymphs (auto) Nucleated RBC % Sodium Potassium Chloride Carbon Dioxide Anion Gap BUN Creatinine Estim Creat Clear Calc Est GFR (MDRD) Af Amer Est GFR (MDRD) Non-Af BUN/Creatinine Ratio Glucose Calcium Total Bilirubin Direct Bilirubin AST ALT Alkaline Phosphatase Total Protein Albumin Globulin Urine Opiates Screen POSITIVE H Urine Methadone Screen NEGATIVE Ur Barbiturates Screen NEGATIVE Ur Phencyclidine Scrn NEGATIVE Ur Amphetamines Screen NEGATIVE U Methamphetamin-MDMA NEGATIVE U Benzodiazepines Scrn NEGATIVE Urine Cocaine Screen NEGATIVE U Cannabinoids Screen POSITIVE H Ur Drug Screen Comment Ethyl Alcohol 85.0 - Medical Decision Making Patient was given IV fluids, Zofran, Ativan, and Protonix. On repeat evaluation he reports improvement in his symptoms. I spoke with hospitalist and patient will be admitted for further treatment. ED Disposition - Plan for ED Patient: Disposition: Acute Care Hospital [facility] Diagnosis: Alcoholism Referrals: Care Physician,No Primary [NON-STAFF] -
[2019-06-20 20:04] VITALS: BP 145/95; PULSE 84; RESP 16; O2SAT 97
[2019-06-20 20:11] LABS: Absolute Lymphocyte Count 0.93 X10^3/uL (0.83-4.51); Absolute Neutrophil Count 6.2 X10^3/uL (2.0-7.7); Basophil# 0.04 X10^3/uL; Basophil% 0.5 % (0-1); Hematocrit 41.7 % (40-54); Hemoglobin 14.6 g/dL (13.0-16.5); Lymphocyte # 0.93 X10^3/ul (4.0); Lymphocyte % 12.2 % (19-41); Mean Corpuscular Hgb 31.8 pg (27.0-32.0); Mean Corpuscular Volume 90.8 fL (80-94); Mean Platelet Vol. 12.2 fl (6.2-12.0); Monocyte# 0.49 X10^3/uL; Monocyte% 6.4 % (0-10); NRBC Flagged by Analyzer 0 % (0-5); Neutrophil # 6.16 X10^3/uL (2.7-7.7); Neutrophil % 80.5 % (47-70); Platelet Count 104 K/mm3 (150-450); RBC Distribution Width CV 11.8 % (11.6-14.6); RBC Distribution Width SD 39.4 fl (35.1-43.9); Red Blood Count 4.59 M/mm3 (4.6-6.2); White Blood Count 7.7 K/mm3 (4.4-11.0)
[2019-06-20] MEDS: 0.9% Normal Saline 1,000 ML 1000 ML IV (20:14)
[2019-06-20] MEDS: LORazepam 2 MG/ML Syringe 0.5 MG IV (20:14)
[2019-06-20] MEDS: Ondansetron 4 MG/2 ML Vial IV (20:14)
[2019-06-20 20:28] LABS: Anion Gap 13 (5-15); BUN 17 mg/dL (7-18); BUN/Creat Ratio 15.7 RATIO (10-20); Calcium,Total 9.6 mg/dL (8.5-10.1); Chloride 88 mmol/L (98-107); Creatinine, Serum 1.08 mg/dL (0.70-1.30); EST Glomerular Filtration Rate 78 mL/min (>60); Est Glom Filt Rate - Afr Amer 94 mL/min (>60); Estimated Creatinine Clearance 87.31 ml/min; Glucose 76 mg/dL (74-106); Potassium 3.9 mmol/L (3.5-5.1); Sodium Level 132 mmol/L (136-145)
[2019-06-20 20:29] LABS: AST(SGOT) 258 U/L (15-37); Alanine Aminotransfer ALT/SGPT 165 U/L (16-61); Albumin, Serum 4.7 g/dL (3.2-5.0); Alkaline Phosphatase 85 U/L (45-117); Bilirubin, Direct 0.84 mg/dL (0.00-0.30); Globulin 3.1 g/dL (2.2-4.2); Protein, Total 7.8 g/dL (6.4-8.2)
[2019-06-20 20:49] LABS: Amphetamine Urine VISTA NEGATIVE (<1000 ng/mL); Barbiturate Urine VISTA NEGATIVE (< 200 ng/mL); Benzodiazepine Urine VISTA NEGATIVE (< 200 ng/mL); Cocaine Urine VISTA NEGATIVE (< 300 ng/mL); Ecstacy Urine VISTA NEGATIVE (< 500 ng/mL); Methadone Urine VISTA NEGATIVE (< 300 ng/mL); PCP Urine VISTA NEGATIVE (< 25 ng/mL); THC Urine VISTA POSITIVE (< 50 ng/mL); Vista UDS pH Range 7
--- NOTE | 2019-06-20 21:00 | PCM.HP.STD ---
Problem List (1) Alcohol withdrawal Status: Acute Qualifiers: Complication of substance-induced condition: uncomplicated Qualified Code(s): F10.230 - Alcohol dependence with withdrawal, uncomplicated (2) Elevated liver function tests Status: Acute (3) Hyponatremia Status: Acute (4) Back pain Status: Acute Qualifiers: Back pain location: back pain in unspecified location Chronicity: unspecified Back pain laterality: unspecified Qualified Code(s): M54.9 - Dorsalgia, unspecified (5) GERD (gastroesophageal reflux disease) Status: Chronic Qualifiers: Esophagitis presence: esophagitis presence not specified Qualified Code(s): K21.9 - Gastro-esophageal reflux disease without esophagitis (6) Former tobacco use Status: Chronic (7) Alcohol abuse Status: Chronic History of Present Illness Date of Admission: 06/20/19 Chief Complaint: Acute EtOH Withdrawal The patient is a 49 y/o M w/ PMHx: Former Remote Tobacco use College, GERD, EtOH Abuse bwho presents to the [facility] ED on 06/20/19 w/ noted acute EtOH withdrawal, onset starting this evening following last EtOH intake at approximately 4 PM on day of presentation with onset of nausea with emesis and dry heaves, fatigue, malaise, mild abdominal cramping, sensation of tremors, mild agitation in addition to mild tactile disturbances. Patient was most recently admitted in January 2019 for alcohol withdrawal at that time and remained sober for nearly 5 months with onset of recurrent alcohol intake with binge over the last 10 days drinking approximately 1/5 of vodka daily. He notes that he recently had some lumbar back strain and restarted alcohol intake to assist with discomfort. Patient interested in attaining sober status. Work-up in the ED included T 98.5, heart rate 106, BP 133/75, respiratory rate 20, sats 97% on room air, CBC with WBC 7.7, hemoglobin 14.6, platelet 104 without market shift, CMP with sodium 132, chloride 88, total bilirubin 3.90, direct bilirubin 0.84, AST/ALT 258/165, UDS with positive opiate and cannabis, ethyl alcohol 85. In ED patient ministered normal saline, Protonix, Zofran, Ativan 0.5 mg IV x1. Past Medical History Past Medical History (Chronic Problems): Chronic Problems GERD (gastroesophageal reflux disease) (Chronic) Former tobacco use (Chronic) Alcohol abuse (Chronic) Medical History: Medical History (Last Updated 10/31/18 @ 11:31 by Ginna Cotto) Gastritis K29.70 Allergies No Known Allergies Allergy (Unverified 06/20/19 18:48) Home Medications: Ambulatory Orders Medication Instructions Recorded Ondansetron HCl [Zofran] 4 mg PO Q8H PRN PRN #14 tab 02/06/19 Surgical History: - - Lumbar microdiscectomy x2, left ankle surgery. Psychiatric History: No pertinent psych hx Lives: Spouse/ Significant Other Smoking Status: Former smoker - Patient notes cigarette tobacco usage in college, none since. Tobacco Use: Non-smoker Alcohol: Heavy - Patient recently started significant alcohol intake, binge x10 days with vodka approximately 1/5 daily. Drugs: - - Notes CBD oil. - *Family History Maternal History Items: - - Patient denies any market maternal family history including heart disease, diabetes or cancer. Paternal History Items: - - Father with a history of prostate disease. Review of Systems Constitutional: Reports: Anorexia, Malaise, Weakness, Fatigue. Denies: Chills, Fever, Weight Change HEENT: Denies: Head Aches, Sinus Congestion, Sinus Drainage Cardiovascular: Denies: Chest Pain, Palpitations Respiratory: Denies: Cough, Shortness of breath at rest, Sputum production Gastrointestinal: Reports: Abdominal Pain, Nausea, Vomiting Genitourinary: Denies: Dysuria Musculoskeletal: Reports: Back Pain, Joint Pain. Denies: Joint Tenderness Skin: Denies: Rash, Wounds Neurological: Denies: Numbness, Tingling, Focal weakness Psychiatric: Denies: Anxiety, Depression, Homicidal Ideations, Suicidal Ideations Hematologic/ Lymphatic: Denies: Easy Bruising, Easy Bleeding VTE Information - Inpt Only VTE Present on Admission: No VTE Mechan Device Prophylaxis: None VTE Pharm Prophylaxis ordered?: No Reason prophylaxis not ordered:: Treatment Not Indicated Patient Problems: Active and Suspected Problems (Last Updated 10/31/18 @ 11:31 by Ginna Cotto) Alcoholism (Acute) Alcohol withdrawal (Acute) Elevated liver function tests (Acute) Hyponatremia (Acute) Subjective: Patient seated upright in ED bed, fatigued appearing, holding emesis bag, mild tremor. Objective: Physical Examination: General: awake, alert, oriented x 3 and cooperative, seated upright in the ED bed, fatigued and ill-appearing, holding emesis bag. Skin: normal color, turgor, no icterus, cyanosis. HEENT: AT/NC, EOMI, PERRLA, dry MM, no carotid bruits or JVD noted. Lungs: CTA bilaterally, moderate effort, moderate decrease BL bases, no rales, ronchi or wheezing. Heart: Mildly tachycardic with regular rhythm; no gallop, rub audible. Abdomen: soft, NTTP, ND, mildly hyperactive BS, minimal HM. Extremities: no cyanosis, clubbing, or edema. Neurological: patient awake, alert, oriented x 3; cognitive function appears baseline intact; pupils equally reactive to light and accomodation; cranial nerves II-XII grossly normal, moving all 4 extremities, no focal deficits, strength moderately global decrease secondary to acute presentation. Psychiatric: affect appears fatigued, ill-appearing, no acute evidence of depressive or anxiety feelings. - Physical Exam Vitals/I&O's: Vital Signs Temp Pulse Resp BP Pulse Ox 98.5 F 84 16 145/95 H 97 06/20/19 18:44 06/20/19 20:04 06/20/19 20:04 06/20/19 20:04 06/20/19 20:04 Oxygen Delivery Method Room Air Weight: 169 lb 8.568 oz Body Mass Index (BMI) 24.3 Laboratory Results 06/20/19 20:00: Total Bilirubin 3.90 H, Direct Bilirubin 0.84 H, AST 258 H, ALT 165 H, Alkaline Phosphatase 85, Total Protein 7.8, Albumin 4.7, Globulin 3.1 06/20/19 20:00: WBC 7.7, RBC 4.59 L, Hgb 14.6, Hct 41.7, MCV 90.8, MCH 31.8, MCHC 35.0, RDW Std Deviation 39.4, RDW Coeff of Shahbaz 11.8, Plt Count 104 L, MPV 12.2 H, Immature Gran % (Auto) 0.400, Neut % (Auto) 80.5 H, Lymph % (Auto) 12.2 L, [place] % (Auto) 6.4, Eos % (Auto) 0.0, Baso % (Auto) 0.5, Absolute Neuts (auto) 6.2, Absolute Lymphs (auto) 0.93, Nucleated RBC % 0 06/20/19 20:00: Sodium 132 L, Potassium 3.9, Chloride 88 L, Carbon Dioxide 31.0, Anion Gap 13, BUN 17, Creatinine 1.08, Estim Creat Clear Calc 87.31, Est GFR (MDRD) Af Amer 94, Est GFR (MDRD) Non-Af 78, BUN/Creatinine Ratio 15.7, Glucose 76, Calcium 9.6 06/20/19 20:00: Ethyl Alcohol 85.0 06/20/19 20:15: Urine Opiates Screen POSITIVE H, Urine Methadone Screen NEGATIVE, Ur Barbiturates Screen NEGATIVE, Ur Phencyclidine Scrn NEGATIVE, Ur Amphetamines Screen NEGATIVE, U Methamphetamin-MDMA NEGATIVE, U Benzodiazepines Scrn NEGATIVE, Urine Cocaine Screen NEGATIVE, U Cannabinoids Screen POSITIVE H, Ur Drug Screen Comment Current Medications Sodium Chloride () 1,000 mls @ 150 mls/hr IV .Q6H40M JERROD Assessment/Plan All Active Problems (Last Updated 10/31/18 @ 11:31 by Ginna Cotto) Back pain (Acute) Alcoholism (Acute) Alcohol withdrawal (Acute) Elevated liver function tests (Acute) Hyponatremia (Acute) Acute alcohol intoxication (Acute) The patient is a 49 y/o M w/ PMHx: Former Remote Tobacco use College, GERD, EtOH Abuse bwho presents to the [facility] ED on 06/20/19 w/ noted acute EtOH withdrawal, onset starting this evening following last EtOH intake at approximately 4 PM on day of presentation with onset of nausea with emesis and dry heaves, fatigue, malaise, mild abdominal cramping, sensation of tremors, mild agitation in addition to mild tactile disturbances. 1. Acute EtOH Withdrawal: Will admit to medical surgical floor, routine labs obtained in the ED upon presentation and notable for elevated bilirubin and LFTs likely secondary to recent binge as well as mild hyponatremia. Given interest in sobriety, will initiate and continue on protocol with taper course of Phenobarbital, scheduled gabapentin for seizure prophylaxis, as needed Catapres, Bentyl, Vistaril, IV fluids, IV antiemetics, Tylenol as needed for pain. Will consult Case management for assistance for transition to next level of rehabilitation care. Mag, phos pending. Maintain on CIWA protocol concurrently. 2. Hyponatremia, mild, likely chronic: Secondary to alcohol intake, admission sodium 132, chloride 88, hydrating, repeat CMP in a.m. given abnormal LFTs and bilirubin concurrently. 3. Elevated LFTs, bilirubin: Likely secondary to recent alcohol binge, chronic alcohol abuse history, admission total bilirubin 3.90, direct bilirubin 0.4, AST/ALT 258/165, continue to hydrate and repeat CMP in a.m. 4. GERD: Given Protonix in the ED, will maintain on famotidine. 5. Former remote tobacco use: Notes smoking cigarettes in college, none since, encouraged continued tobacco cessation. 6. Recent lumbar back strain: Status post history of lumbar back surgery with microdiscectomy x2, recent strain, using alcohol for discomfort control, will have PRN Tylenol, ibuprofen, scheduled gabapentin given acute presentation as noted #1, add lidocaine patches, kpad as needed. 7. DVT prophylaxis: Low risk, encourage ambulation. Inpatient E&M: 44151 Init Hosp L3
[2019-06-20] MEDS: 0.9% Normal Saline 1,000 ML 150 ML IV (21:23)
[2019-06-20 21:26] VITALS: BP 145/87; PULSE 85; RESP 16; TEMP 37; O2SAT 98
--- NOTE | 2019-06-20 21:50 | ED.RN ---
THIS NURSE SPOKE WITH PT ABOUT CONTRACT. 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 PER DR CROWLEY, PT IS PERMITTED TO KEEP HIS CELL PHONE AND HE DOES NOT NEED TO SIGN THE CONTRACT. SHE IS GOING TO ADMIT HIM ANYWAY. THIS NURSE CALLED AND SPOKE WITH CIARRA NOLAND ON MED/SURG. DISCUSSED THIS ISSUE WITH HER. DETERMINED TO HAVE THE PT SIGN THE CONTRACT BUT CROSS OUT CELL PHONE.
--- NOTE | 2019-06-20 21:55 | NURSING ---
Talked to Sindy NOLAND in ER and also Dr. Elsa Wilburn. Dr. 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 I asked that they have pt sign contract with that exclusion. Dr. Wilburn was in agreement.
[2019-06-20 21:59] VITALS: BMI 24.3
[2019-06-20 22:18] VITALS: BP 136/81; PULSE 85; RESP 15; TEMP 36.8; O2SAT 98
[2019-06-20 22:29] LABS: Magnesium 2.3 mg/dL (1.6-2.6); Phosphorus 3.7 mg/dL (2.5-4.9)
[2019-06-20] MEDS: 0.9% Normal Saline 1,000 ML 125 ML IV (22:32)
[2019-06-20] MEDS: hydrOXYzine PAM 25 MG Capsule 50 MG PO (23:06)
[2019-06-20] MEDS: proCHLORPERazine 10 MG/2 ML Vial 5 MG IV (23:06)
[2019-06-20] MEDS: traZODone 50 MG Tablet PO (23:29)
[2019-06-20] MEDS: Gabapentin 300 MG Capsule PO (23:29)
[2019-06-20] MEDS: Phenobarbital 32.4 MG Tablet 64.8 MG PO (23:30)
[2019-06-20] MEDS: Famotidine 20 MG Tablet PO (23:30)
[2019-06-21] VITALS (8 sets, daily range): BP systolic 126–143; BP diastolic 72–95; PULSE 76–85; RESP 16–18; TEMP 36.1–37.3; O2SAT 95–98
[2019-06-21] MEDS: Phenobarbital 32.4 MG Tablet 64.8 MG PO ×6 (03:15→21:22)
[2019-06-21] MEDS: Ondansetron 4 MG/2 ML Vial IV (03:20)
[2019-06-21] MEDS: 0.9% Saline Lock 10 ML Syringe IV (03:20)
[2019-06-21] MEDS: 0.9% Normal Saline 1,000 ML 125 ML IV ×3 (05:58→21:27)
[2019-06-21 07:02] LABS: ALB/GLOB Ratio 1.2 RATIO (0.9-2.4); AST(SGOT) 178 U/L (15-37); Alanine Aminotransfer ALT/SGPT 132 U/L (16-61); Albumin, Serum 3.6 g/dL (3.2-5.0); Alkaline Phosphatase 67 U/L (45-117); Anion Gap 9 (5-15); BUN 16 mg/dL (7-18); BUN/Creat Ratio 14.4 RATIO (10-20); Calcium,Total 8.1 mg/dL (8.5-10.1); Chloride 92 mmol/L (98-107); Creatinine, Serum 1.11 mg/dL (0.70-1.30); EST Glomerular Filtration Rate 75 mL/min (>60); Est Glom Filt Rate - Afr Amer 91 mL/min (>60); Estimated Creatinine Clearance 84.95 ml/min; Globulin 2.9 g/dL (2.2-4.2); Glucose 86 mg/dL (74-106); Potassium 3.3 mmol/L (3.5-5.1); Protein, Total 6.5 g/dL (6.4-8.2); Sodium Level 135 mmol/L (136-145)
[2019-06-21] MEDS: BENZOCAINE/MENTHOL 1 LOZENGE MUCOUS MEM (07:05)
--- NOTE | 2019-06-21 07:47 | PCM.PN.HOSP ---
Patient Problems: Active and Suspected Problems (Last Updated 10/31/18 @ 11:31 by Ginna Cotto) Alcoholism (Acute) Alcohol withdrawal (Acute) Elevated liver function tests (Acute) Hyponatremia (Acute) Reason for Visit: acute alcohol withdrawal Subjective: Patient is a 49-year-old gentleman with history of chronic alcohol use presented with acute alcohol withdrawal Objective: GENERAL: cooperative HEENT: Atraumatic; EYES; Anicteric, Normal Conjunctiva NECK; supple, normal thyroid, RESPIRATORY: Diminished to auscultation CARDIOVASCULAR: Regular S1 S2, GI: soft, normoactive bowel sounds, : No Renal angle tenderness; EXTREMITIES: No edema, no clubbing, MUSCULOSKELETAL: no muscle waisting NEURO: Awake; no lateralizing signs. SKIN: No Rash PSYCH; Flat affect Vitals/I&O's: Vital Signs Temp Pulse Resp BP Pulse Ox 98.7 F 84 16 143/92 H 98 06/21/19 06:57 06/21/19 06:57 06/21/19 06:57 06/21/19 06:57 06/21/19 06:57 Oxygen Delivery Method Room Air Weight: 76.7 kg Body Mass Index (BMI) 24.3 Intake and Output for Last 24 Hours 06/19/19 06/20/19 06/21/19 23:59 23:59 23:59 Intake Total 1282.5 / 1382.5 1200 / 1200 Balance 1282.5 / 1382.5 1200 / 1200 Laboratory Results 06/20/19 20:00: Total Bilirubin 3.90 H, Direct Bilirubin 0.84 H, AST 258 H, ALT 165 H, Alkaline Phosphatase 85, Total Protein 7.8, Albumin 4.7, Globulin 3.1 06/20/19 20:00: WBC 7.7, RBC 4.59 L, Hgb 14.6, Hct 41.7, MCV 90.8, MCH 31.8, MCHC 35.0, RDW Std Deviation 39.4, RDW Coeff of Shahbaz 11.8, Plt Count 104 L, MPV 12.2 H, Immature Gran % (Auto) 0.400, Neut % (Auto) 80.5 H, Lymph % (Auto) 12.2 L, [place] % (Auto) 6.4, Eos % (Auto) 0.0, Baso % (Auto) 0.5, Absolute Neuts (auto) 6.2, Absolute Lymphs (auto) 0.93, Nucleated RBC % 0 06/20/19 20:00: Sodium 132 L, Potassium 3.9, Chloride 88 L, Carbon Dioxide 31.0, Anion Gap 13, BUN 17, Creatinine 1.08, Estim Creat Clear Calc 87.31, Est GFR (MDRD) Af Amer 94, Est GFR (MDRD) Non-Af 78, BUN/Creatinine Ratio 15.7, Glucose 76, Calcium 9.6 06/20/19 20:00: Ethyl Alcohol 85.0 06/20/19 20:00: Phosphorus 3.7, Magnesium 2.3 06/20/19 20:15: Urine Opiates Screen POSITIVE H, Urine Methadone Screen NEGATIVE, Ur Barbiturates Screen NEGATIVE, Ur Phencyclidine Scrn NEGATIVE, Ur Amphetamines Screen NEGATIVE, U Methamphetamin-MDMA NEGATIVE, U Benzodiazepines Scrn NEGATIVE, Urine Cocaine Screen NEGATIVE, U Cannabinoids Screen POSITIVE H, Ur Drug Screen Comment 06/21/19 05:00: Sodium 135 L, Potassium 3.3 L, Chloride 92 L, Carbon Dioxide 34.0 H, Anion Gap 9, BUN 16, Creatinine 1.11, Estim Creat Clear Calc 84.95, Est GFR (MDRD) Af Amer 91, Est GFR (MDRD) Non-Af 75, BUN/Creatinine Ratio 14.4, Glucose 86, Calcium 8.1 L, Total Bilirubin 4.20 H, AST 178 H, ALT 132 H, Alkaline Phosphatase 67, Total Protein 6.5, Albumin 3.6, Globulin 2.9, Albumin/Globulin Ratio 1.2 Current Medications Acetaminophen (Tylenol) 500 mg PO Q4H PRN PRN PRN Reason: Temp > 100.4 F Al Hydroxide/Mg Hydroxide (Mylanta Ii) 30 ml PO Q6H PRN PRN PRN Reason: Gastric Burning Al Hydroxide/Mg Hydroxide (Mylanta Ii) 30 ml PO Q6H PRN PRN PRN Reason: dyspesia Albuterol Sulfate (Ventolin Aerosols) 2.5 mg INHALATION Q2H PRN PRN PRN Reason: Shortness of Breath/Wheezing Bisacodyl (Dulcolax) 10 mg RECTAL DAILY PRN PRN Reason: Constipation Dicyclomine HCl (Bentyl) 20 mg PO Q6H PRN PRN PRN Reason: abdominal discomfort Famotidine (Pepcid) 20 mg PO BID [facility] Last Admin: 06/20/19 23:30 Dose: 20 mg Documented by: [facility] ([facility] Acid) [facility] Stop: 06/23/19 08:01 Gabapentin (Neurontin) 300 mg PO TIDCM [facility] Last Admin: 06/20/19 23:29 Dose: 300 mg Documented by: Glucagon () 1 mg IM .X1 PRN PRN Reason: Hypoglycemia Guaifenesin (Robitussin) 20 ml PO Q4H PRN PRN PRN Reason: COUGH Hydroxyzine Pamoate (Vistaril Pamoate Capsule) 50 mg PO Q6H PRN PRN PRN Reason: Mild Anxiety (score 1/3) Last Admin: 06/20/19 23:06 Dose: 50 mg Documented by: Sodium Chloride () 1,000 mls @ 125 mls/hr IV .Q8H [facility] Last Admin: 06/21/19 05:58 Dose: 125 mls/hr Documented by: Dextrose (Dextrose 10%-Water) 250 mls @ 999 mls/hr IV .Q16M PRN; Protocol PRN Reason: HYPOGLYCEMIA Ibuprofen (Motrin) 600 mg PO Q8H PRN PRN PRN Reason: Pain Score 1-5/10 Lidocaine (Lidoderm Patch) 2 patch TOPICAL DAILY [facility]; Protocol Loperamide HCl (Imodium) 2 - 4 mg PO UD PRN PRN Reason: LOOSE STOOLS Lorazepam (Ativan) 1 mg IV Q4H PRN PRN PRN Reason: Severe Anxiety Lorazepam (Ativan) 2 mg IV X1 PRN PRN Reason: Seizure Methocarbamol (Methocarbamol) 750 mg PO Q6H PRN PRN PRN Reason: Muscle Aches Multivitamins (Multivitamin) [facility] Nutritional Formula (Lactose Free) (Ensure Enlive) 120 ml PO 4X/DAY [facility] Ondansetron HCl (Zofran) 4 mg IV Q8H PRN PRN PRN Reason: NAUSEA/VOMITING Last Admin: 06/21/19 03:20 Dose: 4 mg Documented by: Ondansetron HCl (Zofran Odt) 4 mg PO Q6H PRN PRN PRN Reason: NAUSEA Phenobarbital (Phenobarbital) 97.2 mg PO Q4H [facility]; Taper Stop: 06/25/19 06:08 Last Admin: 06/21/19 07:00 Dose: 97.2 mg Documented by: Prochlorperazine Edisylate (Compazine Iv) 5 mg IV Q4H PRN PRN PRN Reason: Breakthrough nausea/vomiting Last Admin: 06/20/19 23:06 Dose: 5 mg Documented by: Senna (Senokot) 1 tablet PO QHS PRN PRN PRN Reason: Constipation Sodium Chloride () 10 - 40 ml IV UD PRN PRN Reason: SALINE FLUSH Last Admin: 06/21/19 03:20 Dose: 10 ml Documented by: Thiamine HCl (Vitamin B1) 100 mg PO DAILYCM [facility] Stop: 06/23/19 08:01 Throat Lozenges (Cepacol Sore Throat Lozenge) 1 lozenge MUCOUS MEM Q2H PRN PRN PRN Reason: SORE THROAT Last Admin: 06/21/19 07:05 Dose: 1 lozenge Documented by: Trazodone HCl (Desyrel) 50 mg PO QHS JERROD Last Admin: 06/20/19 23:29 Dose: 50 mg Documented by: STROKE Vital Signs/Narrative: Vital Signs Temp Pulse Resp BP Pulse Ox 06/21/19 06:57 98.7 F 84 16 143/92 H 98 Medical Necessity - Tobacco Use Smoking Status: Former smoker Tobacco Use: Non-smoker Assessment/Plan All Active Problems (Last Updated 10/31/18 @ 11:31 by Ginna Cotto) Back pain (Acute) Alcoholism (Acute) Alcohol withdrawal (Acute) Elevated liver function tests (Acute) Hyponatremia (Acute) Acute alcohol intoxication (Acute) Patient is a 49-year-old gentleman with history of chronic alcohol use presented with acute alcohol withdrawal 1. Acute alcohol withdrawal -Admitted to regular nursing floor where patient is currently being managed with alcohol withdrawal stabilization protocol 2. Hyponatremia ?patient did receive fluids sodium levels normalized 3. Hypokalemia ?Corrected per protocol 4. Abnormal LFTs ?Patient clinical picture consistent with alcoholic hepatitis with AST greater than ALT we will continue with monitoring 5. Recent lumbar strain -Pain meds as needed Inpatient E&M: 23571 Subs Hosp L2
[2019-06-21] MEDS: Gabapentin 300 MG Capsule PO ×3 (08:19→18:24)
[2019-06-21] MEDS: Thiamine Hydrochloride 100 MG Tablet PO (08:20)
[2019-06-21] MEDS: Folic Acid 1 MG Tablet PO (08:20)
[2019-06-21] MEDS: Multivitamins,Therapeutic Tablet 1 TABLET PO (08:20)
--- NOTE | 2019-06-21 10:41 | ADDICTION ---
This oncology social work met with patient in his room. Patient was alert and oriented x4 and participated appropriately throughout assessment. He reported no SI/HI at this time. Client reported long-term, episodal alcohol abuse with dependency symptoms including nausea, shakiness, restlessness. He reported that he is currently at [facility] for medical withdrawal management. He reported willingness to engage in assessment process, however, noted that he lives in [place] and is not interested in ongoing services in this area. This sheet writer will provide patient with resources in [facility] related to AoD treatment. This sheet writer will fax client's assessment and ASAM criteria to oncology social work. He appears approrpaite for medical withdrawal management based on report of use history and met ASAM criteria- 4.0 LOC recommended. Dim 1: Currently engaged in medical w/d management. Reports nausea, shakiness, restlessness related to alcohol withdrawal. Dim 2: Chart indicated back pain, elevated liver tests, hypotremia, GERD. Dim 3: Client reports ongoing, manageable anxiety related to withdrawal/ detox symptoms. Dim 4: Client appears ambivalent to change. Presents in contemplation stage of change as evidenced by knowledge of problem behaviors with limited plans to modify problem behaviors. Dim 5: Client reports prior withdrawal management/ treatment engagement with history of relapse and ongoing use. Client presents at a high risk of relapse. Dim 6: Client reports no current AA engagement and notes that he has used alcohol in his home. He reports that his living environment is safe and that his family is supportive of recovery.
[2019-06-21] MEDS: Lidocaine 5% Patch 2 PATCH TOPICAL (11:08)
[2019-06-21] MEDS: Famotidine 20 MG Tablet PO ×2 (11:09→21:22)
[2019-06-21] MEDS: traZODone 50 MG Tablet PO (21:22)
[2019-06-22] MEDS: Phenobarbital 32.4 MG Tablet 64.8 MG PO ×6 (02:29→22:47)
[2019-06-22 02:34] VITALS: BP 122/84; PULSE 87; RESP 14; TEMP 37.1; O2SAT 98
[2019-06-22] MEDS: 0.9% Normal Saline 1,000 ML 125 ML IV (05:48)
[2019-06-22] MEDS: Folic Acid 1 MG Tablet PO (09:08)
[2019-06-22] MEDS: Multivitamins,Therapeutic Tablet 1 TABLET PO (09:08)
[2019-06-22] MEDS: Gabapentin 300 MG Capsule PO ×3 (09:08→16:43)
[2019-06-22] MEDS: Thiamine Hydrochloride 100 MG Tablet PO (09:08)
[2019-06-22] MEDS: Lidocaine 5% Patch 2 PATCH TOPICAL (09:09)
[2019-06-22] MEDS: Famotidine 20 MG Tablet PO ×2 (09:09→22:47)
[2019-06-22 09:15] VITALS: BP 148/94; PULSE 69; PULSE 89; PULSE 90; RESP 16; TEMP 36.5; O2SAT 98
--- NOTE | 2019-06-22 09:20 | ADDICTION ---
This screenplay writer met with patient in his room. Patient was alert and oriented x4 and participated appropriately throughout session. Patient was provided outpatient treatment options in the [place], [place] area per his request. He stated that he plans to engage in outpatient treatment following d/c from medical w/d management. He reported no need for further assistance/case management and noted that he will follow up with this screenplay writer if needed. He was provided with this screenplay writer's contact information. Patient's ASAM assessment was given to [facility] for his file.
[2019-06-22 12:56] VITALS: O2SAT 95
[2019-06-22 13:07] VITALS: BP 146/89; BP 148/89; PULSE 92; RESP 16; TEMP 37.1; O2SAT 98
--- NOTE | 2019-06-22 15:16 | PN_ITS ---
Patient Problems: Active and Suspected Problems (Last Updated 10/31/18 @ 11:31 by Ginna Cotto) Alcoholism (Acute) Alcohol withdrawal (Acute) Elevated liver function tests (Acute) Hyponatremia (Acute) Reason for Visit: Patient is hemodynamically stable. Denies hallucinations, seizures, abdominal pain. Anxiety level is better. Tremors is improved no nausea or vomiting. Patient complain of heartburn and epigastric pain has improved on PPI. Vitals/I&O's: Vital Signs Temp Pulse Resp BP Pulse Ox 98.7 F 92 16 148/89 H 98 06/22/19 13:07 06/22/19 13:07 06/22/19 13:07 06/22/19 13:07 06/22/19 13:07 Oxygen Delivery Method Room Air Weight: 169 lb 1.513 oz Body Mass Index (BMI) 24.3 Intake and Output for Last 24 Hours 06/20/19 06/21/19 06/22/19 23:59 23:59 23:59 Intake Total 1282.5 / 1382.5 4975 / 4975 1927.08 / 1926.08 Balance 1282.5 / 1382.5 4975 / 4975 1927.08 / 1926.08 General: Alert, Oriented x3, Cooperative HEENT: Atraumatic, PERRLA, EOMI, Normocephalic Neck: Supple, No JVD, Negative Carotid Bruits Lungs: Clear to auscultation, Normal air movement Cardiovascular: Regular rate, Regular Rhythm, Normal S1, Normal S2, No murmurs Abdomen: Bowel Sounds Present, Soft, Non Tender, Non-Distended, No Hepato- splenomegaly Extremities: No edema, Capillary Refill Less than 3 Seconds Skin: No rashes, No breakdown Musculoskeletal: No Tenderness to Palpation of Joints or Extremities, Arthritic Changes Neurological: Cranial nerves II-XII grossly intact, Deep Tendon Reflexes 2+/4 and Symmetrical, Neuro grossly intact Psych/Mental Status: Normal Affect, Appropriate Current Medications Acetaminophen (Tylenol) 500 mg PO Q4H PRN PRN PRN Reason: Temp > 100.4 F Al Hydroxide/Mg Hydroxide (Mylanta Ii) 30 ml PO Q6H PRN PRN PRN Reason: Gastric Burning Al Hydroxide/Mg Hydroxide (Mylanta Ii) 30 ml PO Q6H PRN PRN PRN Reason: dyspesia Albuterol Sulfate (Ventolin Aerosols) 2.5 mg INHALATION Q2H PRN PRN PRN Reason: Shortness of Breath/Wheezing Bisacodyl (Dulcolax) 10 mg RECTAL DAILY PRN PRN Reason: Constipation Dicyclomine HCl (Bentyl) 20 mg PO Q6H PRN PRN PRN Reason: abdominal discomfort Famotidine (Pepcid) 20 mg PO BID [facility] Last Admin: 06/22/19 09:09 Dose: 20 mg Documented by: Folic Acid (Folic Acid) [facility] Stop: 06/23/19 08:01 Last Admin: 06/22/19 09:08 Dose: 1 mg Documented by: Gabapentin (Neurontin) 300 mg PO TIDCM [facility] Last Admin: 06/22/19 11:50 Dose: 300 mg Documented by: Glucagon () 1 mg IM .X1 PRN PRN Reason: Hypoglycemia Guaifenesin (Robitussin) 20 ml PO Q4H PRN PRN PRN Reason: COUGH Hydroxyzine Pamoate (Vistaril Pamoate Capsule) 50 mg PO Q6H PRN PRN PRN Reason: Mild Anxiety (score 1/3) Last Admin: 06/20/19 23:06 Dose: 50 mg Documented by: Dextrose (Dextrose 10%-Water) 250 mls @ 999 mls/hr IV .Q16M PRN; Protocol PRN Reason: HYPOGLYCEMIA Ibuprofen (Motrin) 600 mg PO Q8H PRN PRN PRN Reason: Pain Score 1-5/10 Lidocaine (Lidoderm Patch) 2 patch TOPICAL DAILY [facility]; Protocol Last Admin: 06/22/19 09:09 Dose: 2 patch Documented by: Loperamide HCl (Imodium) 2 - 4 mg PO UD PRN PRN Reason: LOOSE STOOLS Lorazepam (Ativan) 1 mg IV Q4H PRN PRN PRN Reason: Severe Anxiety Lorazepam (Ativan) 2 mg IV X1 PRN PRN Reason: Seizure Methocarbamol (Methocarbamol) 750 mg PO Q6H PRN PRN PRN Reason: Muscle Aches Multivitamins (Multivitamin) [facility] tablet [facility] Last Admin: 06/22/19 09:08 Dose: 1 tablet Documented by: Nutritional Formula (Lactose Free) (Ensure Enlive) 120 ml PO 4X/DAY [facility] Last Admin: 06/22/19 13:13 Dose: 120 ml Documented by: Ondansetron HCl (Zofran) 4 mg IV Q8H PRN PRN PRN Reason: NAUSEA/VOMITING Last Admin: 06/21/19 03:20 Dose: 4 mg Documented by: Ondansetron HCl (Zofran Odt) 4 mg PO Q6H PRN PRN PRN Reason: NAUSEA Phenobarbital (Phenobarbital) 64.8 mg PO Q4H [facility]; Taper Stop: 06/25/19 06:08 Last Admin: 06/22/19 14:21 Dose: 64.8 mg Documented by: Potassium Chloride (K-Dur) 40 meq PO BIDCM [facility] Stop: 06/24/19 12:02 Last Admin: 06/22/19 13:13 Dose: 40 meq Documented by: Prochlorperazine Edisylate (Compazine Iv) 5 mg IV Q4H PRN PRN PRN Reason: Breakthrough nausea/vomiting Last Admin: 06/20/19 23:06 Dose: 5 mg Documented by: Senna (Senokot) 1 tablet PO QHS PRN PRN PRN Reason: Constipation Sodium Chloride () 10 - 40 ml IV UD PRN PRN Reason: SALINE FLUSH Last Admin: 06/21/19 03:20 Dose: 10 ml Documented by: Thiamine HCl (Vitamin B1) 100 mg [facility] Stop: 06/23/19 08:01 Last Admin: 06/22/19 09:08 Dose: 100 mg Documented by: Throat Lozenges (Cepacol Sore Throat Lozenge) 1 lozenge MUCOUS MEM Q2H PRN PRN PRN Reason: SORE THROAT Last Admin: 06/21/19 07:05 Dose: 1 lozenge Documented by: Trazodone HCl (Desyrel) 50 mg PO QHS [facility] Last Admin: 06/21/19 21:22 Dose: 50 mg Documented by: STROKE Vital Signs/Narrative: Vital Signs Temp Pulse Resp BP Pulse Ox 06/22/19 13:07 98.7 F 92 16 148/89 H 98 06/22/19 12:56 95 Medical Necessity - Tobacco Use Smoking Status: Former smoker Tobacco Use: Non-smoker Assessment/Plan All Active Problems (Last Updated 10/31/18 @ 11:31 by Ginna Cotto) Back pain (Acute) Alcoholism (Acute) Alcohol withdrawal (Acute) Elevated liver function tests (Acute) Hyponatremia (Acute) Acute alcohol intoxication (Acute) Patient is a 49-year-old gentleman with history of chronic alcohol use presented with acute alcohol withdrawal 1. Acute alcohol withdrawal -Admitted to regular nursing floor where patient is currently being managed with alcohol withdrawal stabilization protocol. Patient is on phenobarbital. 2. Hyponatremia ?patient did receive fluids sodium levels normalized Renal level is improved. 3. Hypokalemia Patient still hypokalemic. Potassium is getting replaced and magnesium and phosphorus Level is normal 4. Acute on chronic alcoholic hepatitis ?Patient clinical picture consistent with acute on chronic alcoholic hepatitis with AST greater than ALT we will continue with monitoring. Repeat LFTs shows improvement in transaminases. Total bili went up to 4.2 but that is expected 5. Recent lumbar strain -Pain meds as needed Inpatient E&M: 73316 Subs Hosp L2
[2019-06-22 18:21] VITALS: BP 133/91; PULSE 91; RESP 16; TEMP 36.8
[2019-06-22 22:00] VITALS: BP 144/90; PULSE 96; RESP 16; TEMP 37; O2SAT 98
[2019-06-22] MEDS: traZODone 50 MG Tablet PO (22:47)
[2019-06-23 02:00] VITALS: BP 128/78; PULSE 82; RESP 16; TEMP 36.7; O2SAT 98
[2019-06-23] MEDS: Phenobarbital 32.4 MG Tablet 64.8 MG PO ×2 (02:51→06:27)
[2019-06-23 07:25] VITALS: O2SAT 97
[2019-06-23] MEDS: Folic Acid 1 MG Tablet PO (09:11)
[2019-06-23] MEDS: Gabapentin 300 MG Capsule PO (09:11)
[2019-06-23] MEDS: Multivitamins,Therapeutic Tablet 1 TABLET PO (09:11)
[2019-06-23] MEDS: Famotidine 20 MG Tablet PO (09:11)
[2019-06-23] MEDS: Thiamine Hydrochloride 100 MG Tablet PO (09:11)
[2019-06-23 09:16] VITALS: BP 132/86; PULSE 86; RESP 18; TEMP 36.6; O2SAT 100
[2019-06-23] MEDS: Ondansetron ODT 4 MG Tablet PO (09:28)
--- NOTE | 2019-06-23 09:37 | DCINST_ITS ---
- Discharge Diagnoses Current Active Problems: Current Active and Chronic Problems Alcoholism (Acute) Alcohol withdrawal (Acute) GERD (gastroesophageal reflux disease) (Chronic) Elevated liver function tests (Acute) Hyponatremia (Acute) Former tobacco use (Chronic) You will use the following diet at home:: Regular Your food should be the consistency of: Regular Discharge Activity: May Not Drive Weight Bearing Status: Weight bearing as tolerated Call your doctor if you observe: Fever of 101 or Higher, Coldness, Increased Pain, Numbness or Tingling, Change in Color, Inability to urinate, Inability to have a bowel movement, Shortness of breath, Dizziness, Fainting spells, Swelling in the ankles, Chest pain, Prolonged hiccoughing, Increased palpitations (irregular heartbeat) Additional Instructions: f/u 180 on Tuesday06/25/2019. The patient has PPI, Protonix at home. Advised Protonix 40 mg or omeprazole 40 mg daily, 1 hour before breakfast. Patient has GERD. Follow with PCP to schedule EGD. Allergies/Adverse Reactions: Allergies No Known Allergies Allergy (Unverified 06/20/19 18:48) Medications to take at Discharge Ondansetron HCl [Zofran] 4 mg PO Q8H PRN PRN #14 tab 06/23/19 The following prescriptions were given: Ondansetron HCl [Zofran] 4 mg PO Q8H PRN PRN #14 tab PRN Reason: Nausea/Vomiting Transmission Status: Pending to [facility]/pharmacy #[id number] Primary Care Physician: Care Physician,No Primary [NON-STAFF] - Please follow up with your Primary Care Physician in: IN 1-2 WEEK Test Results: Test results from this visit will be discussed in further detail at your follow- up appointment, if applicable.
--- NOTE | 2019-06-23 09:38 | PCM.DC.SUM ---
Discharge Date and Diagnosis - Problem List Patient Problems: Active and Suspected Problems (Last Updated 10/31/18 @ 11:31 by Ginna Cotto) Alcoholism (Acute) Alcohol withdrawal (Acute) Elevated liver function tests (Acute) Hyponatremia (Acute) Date of Admission: 06/20/19 Date of Discharge: 06/23/19 - Primary Discharge Diagnosis Active and Suspected Problems (Last Updated 10/31/18 @ 11:31 by Ginna Cotto) Alcoholism (Acute) Alcohol withdrawal (Acute) Elevated liver function tests (Acute) Hyponatremia (Acute) - Secondary Discharge Diagnosis Chronic Problems GERD (gastroesophageal reflux disease) (Chronic) Former tobacco use (Chronic) Alcohol abuse (Chronic) Hospital Course and Treatment Operations: None Summary of Care Provided: [] Patient is a 49-year-old gentleman with history of chronic alcohol use presented with acute alcohol withdrawal 1. Acute alcohol withdrawal -Admitted to regular nursing floor where patient is currently being managed with alcohol withdrawal stabilization protocol. Patient is on phenobarbital. Patient is in the fourth day, completed the phenobarbital regimen. Advised to follow-up with 180 on 06/25/2019. 2. Hyponatremia ?patient did receive fluids sodium levels normalized Renal level is improved. .3. Hypokalemia Potassium was replaced and magnesium and phosphorus serum levels are normal. 4. Acute on chronic alcoholic hepatitis ?Patient clinical picture consistent with acute on chronic alcoholic hepatitis with AST greater than ALT we will continue with monitoring. Repeat LFTs shows improvement in transaminases. Total bili went up to 4.2 but that is expected 5. Recent lumbar strain -Pain meds as needed 6. GERD/acid reflux: Patient had EGD about 1 to 2 years ago and no varices was found. Patient takes PPI at home and advised to continue taking either pantoprazole 40 mg daily or omeprazole 40 mg daily 1 hour before breakfast. Discharge medication reconciliation done. Discharge follow-up instructions completed. Discharge process discussed with the patient and all questions were answered to patient's satisfaction. Patient is discharged home Total time spent, exact 35 minutes on discharge meds reconciliation, examination, coordination of care with nurses and ancillary staff, review of imaging and blood test and discussion with the patient on follow-up instructions Patient Problems: Active and Suspected Problems (Last Updated 10/31/18 @ 11:31 by Ginna Cotto) Alcoholism (Acute) Alcohol withdrawal (Acute) Elevated liver function tests (Acute) Hyponatremia (Acute) Subjective: Seen and examined. Patient had some heartburn and nausea early in the morning got resolved with Zofran. Hemodynamically stable. - Physical Exam Vitals/I&O's: Vital Signs Temp Pulse Resp BP Pulse Ox 97.8 F 86 18 132/86 H 100 06/23/19 09:16 06/23/19 09:16 06/23/19 09:16 06/23/19 09:16 06/23/19 09:16 Oxygen Delivery Method Room Air Weight: 169 lb 1.513 oz Body Mass Index (BMI) 24.3 Intake and Output for Last 24 Hours 06/21/19 06/22/19 06/23/19 23:59 23:59 23:59 Intake Total 4975 / 4975 1927.08 / 3127.08 2199 / 2199 Balance 4975 / 4975 1927.08 / 3127.08 2199 / 2199 General: Alert, Oriented x3, Cooperative HEENT: Atraumatic, PERRLA, EOMI, Normocephalic Neck: Supple, No JVD, Negative Carotid Bruits Lungs: Clear to auscultation, Normal air movement Cardiovascular: Regular rate, Regular Rhythm, Normal S1, Normal S2, No murmurs Abdomen: Bowel Sounds Present, Soft, Non Tender, Non-Distended Extremities: No edema, Capillary Refill Less than 3 Seconds Skin: No rashes, No breakdown Musculoskeletal: No Tenderness to Palpation of Joints or Extremities Neurological: Cranial nerves II-XII grossly intact, Deep Tendon Reflexes 2+/4 and Symmetrical, Neuro grossly intact, Motor Exam 5/5 strength throughout Psych/Mental Status: Normal Affect, Appropriate Current Medications Acetaminophen (Tylenol) 500 mg PO Q4H PRN PRN PRN Reason: Temp > 100.4 F Al Hydroxide/Mg Hydroxide (Mylanta Ii) 30 ml PO Q6H PRN PRN PRN Reason: Gastric Burning Al Hydroxide/Mg Hydroxide (Mylanta Ii) 30 ml PO Q6H PRN PRN PRN Reason: dyspesia Albuterol Sulfate (Ventolin Aerosols) 2.5 mg INHALATION Q2H PRN PRN PRN Reason: Shortness of Breath/Wheezing Bisacodyl (Dulcolax) 10 mg RECTAL DAILY PRN PRN Reason: Constipation Dicyclomine HCl (Bentyl) 20 mg PO Q6H PRN PRN PRN Reason: abdominal discomfort Famotidine (Pepcid) 20 mg PO BID [facility] Last Admin: 06/23/19 09:11 Dose: 20 mg Documented by: Gabapentin (Neurontin) 300 mg PO TIDCM [facility] Last Admin: 06/23/19 09:11 Dose: 300 mg Documented by: Glucagon () 1 mg IM .X1 PRN PRN Reason: Hypoglycemia Guaifenesin (Robitussin) 20 ml PO Q4H PRN PRN PRN Reason: COUGH Hydroxyzine Pamoate (Vistaril Pamoate Capsule) 50 mg PO Q6H PRN PRN PRN Reason: Mild Anxiety (score 1/3) Last Admin: 06/20/19 23:06 Dose: 50 mg Documented by: Dextrose (Dextrose 10%-Water) 250 mls @ 999 mls/hr IV .Q16M PRN; Protocol PRN Reason: HYPOGLYCEMIA Ibuprofen (Motrin) 600 mg PO Q8H PRN PRN PRN Reason: Pain Score 1-5/10 Lidocaine (Lidoderm Patch) 2 patch TOPICAL DAILY [facility]; Protocol Last Admin: 06/23/19 09:12 Dose: Not Given Documented by: Loperamide HCl (Imodium) 2 - 4 mg PO UD PRN PRN Reason: LOOSE STOOLS Lorazepam (Ativan) 1 mg IV Q4H PRN PRN PRN Reason: Severe Anxiety Lorazepam (Ativan) 2 mg IV X1 PRN PRN Reason: Seizure Methocarbamol (Methocarbamol) 750 mg PO Q6H PRN PRN PRN Reason: Muscle Aches [facility]ivit[facility] ([facility]itamin) [facility] Last Admin: 06/23/19 09:11 Dose: 1 tablet Documented by: Nutritional Formula (Lactose Free) (Ensure Enlive) 120 ml PO 4X/DAY [facility] Last Admin: 06/23/19 09:15 Dose: 120 ml Documented by: Ondansetron HCl (Zofran) 4 mg IV Q8H PRN PRN PRN Reason: NAUSEA/VOMITING Last Admin: 06/21/19 03:20 Dose: 4 mg Documented by: Ondansetron HCl (Zofran Odt) 4 mg PO Q6H PRN PRN PRN Reason: NAUSEA Last Admin: 06/23/19 09:28 Dose: 4 mg Documented by: Phenobarbital (Phenobarbital) 64.8 mg PO Q6H [facility]; Taper Stop: 06/25/19 06:08 Last Admin: 06/23/19 06:27 Dose: 64.8 mg Documented by: Potassium Chloride (K-Dur) 40 meq PO BIDCM [facility] Stop: 06/24/19 12:02 Last Admin: 06/23/19 09:11 Dose: 40 meq Documented by: Prochlorperazine Edisylate (Compazine Iv) 5 mg IV Q4H PRN PRN PRN Reason: Breakthrough nausea/vomiting Last Admin: 06/20/19 23:06 Dose: 5 mg Documented by: Senna (Senokot) 1 tablet PO QHS PRN PRN PRN Reason: Constipation Sodium Chloride () 10 - 40 ml IV UD PRN PRN Reason: SALINE FLUSH Last Admin: 06/21/19 03:20 Dose: 10 ml Documented by: Throat Lozenges (Cepacol Sore Throat Lozenge) 1 lozenge MUCOUS MEM Q2H PRN PRN PRN Reason: SORE THROAT Last Admin: 06/21/19 07:05 Dose: 1 lozenge Documented by: Trazodone HCl (Desyrel) 50 mg PO QHS [facility] Last Admin: 06/22/19 22:47 Dose: 50 mg Documented by: Discharge Activity: May Not Drive Weight Bearing Status: Weight bearing as tolerated Call your doctor if you observe: Fever of 101 or Higher, Coldness, Increased Pain, Numbness or Tingling, Change in Color, Inability to urinate, Inability to have a bowel movement, Shortness of breath, Dizziness, Fainting spells, Swelling in the ankles, Chest pain, Prolonged hiccoughing, Increased palpitations (irregular heartbeat) Home Medications: Medications to take at Discharge Ondansetron HCl [Zofran] 4 mg PO Q8H PRN PRN #14 tab 06/23/19 Following Prescrptions Were Given to Patient: Ondansetron HCl [Zofran] 4 mg PO Q8H PRN PRN #14 tab PRN Reason: Nausea/Vomiting Transmission Status: Pending to [facility]/pharmacy #[id number] Primary Care Physician: Care Physician,No Primary [NON-STAFF] - Please follow up with your Primary Care Physician in: IN 1-2 WEEK Medical Necessity - Tobacco Use Smoking Status: Former smoker Tobacco Use: Non-smoker Meaningful Use Info Meaningful Use Diagnoses (Choose all that apply): None applicable Inpatient E&M: 77004 Disch Hosp
--- NOTE | 2019-06-23 11:26 | NURSING ---
pt refused noon dose of Phenobarbital, education provided.
== END 2019-06-23 11:35 | disposition home or self-care (01) | DRG 897 ==
LOC: ED 21:05 → MS3 21:17
PROVIDERS: Admitting Provider Family Medicine; Emergency Provider Emergency Medicine; Visit Provider Internal Medicine
DX: F10.230 Alcohol dependence with withdrawal, uncomplicated (principal); E87.1 Hypo-osmolality and hyponatremia; S39.012A Strain of muscle, fascia and tendon of lower back, initial encounter; E87.6 Hypokalemia; Z87.891 Personal history of nicotine dependence; K70.10 Alcoholic hepatitis without ascites; K21.9 Gastro-esophageal reflux disease without esophagitis; Y90.4 Blood alcohol level of 80-99 mg/100 ml
CPT/HCPCS: 36415; 80048; 80053; 80076; 80307; 80320; 83735; 84100; 85025; 97802; 99251; 99284; J7030; A4216; G0463; G0480; J2405